=== PATIENT | female | born 1935 | race Caucasian/White ===

== ENCOUNTER → 2018-06-29 09:34 | Outpatient (REF) | payer MEDICARE, OTHER, SELFPAY ==
[2018-06-29 09:55] LABS: INR 2.1 (0.9-1.3); Prothrombin Time 24.9 SECONDS (10.1-12.7)
== END ==
LOC: LAB 09:34
PROVIDERS: Family Provider Physician Assistant Medical; Visit Provider Nurse Practitioner Family
DX: I48.91 Unspecified atrial fibrillation (principal)
CPT/HCPCS: 36415; 85610

== ENCOUNTER 2018-09-16 16:01 | Inpatient (IN) | payer MEDICARE, OTHER, SELFPAY ==
--- NOTE | 2018-09-16 16:06 | DI.RAD.S_ITS ---
PROCEDURE: XR HIP W PEL IF DONE LT 2V INDICATIONS: fall, hematoma lt forehead TECHNIQUE: AP pelvis with lateral view(s) of the left hip(s). COMPARISON: [facility], CR, XR KNEE LT 1TO2V, 09/16/2018, 16:22. [facility], CR, XR HAND RT 2V, 09/16/2018, 16:22. [facility], CR, XR HAND LT 2V, 09/16/2018, 16:22. [facility], CR, XR WRIST LT 2V, 09/16/2018, 16:22. [facility], CT, CT HEAD/BRAIN WO CON, 09/16/2018, 16:09. [facility], CR, PELVIS 1 OR 2 VIEWS, 09/06/2011, 12:29. FINDINGS: Bones: There is a potential nondisplaced fracture of the left superior pubic ramus. No additional focal bony abnormalities are seen. Left hip arthroplasty hardware is seen. No findings of hardware failure or hardware loosening are seen. There is moderate to severe superior joint space narrowing seen of right, with associated remodeling changes with subchondral sclerosis and osteophyte formation. Soft tissues: The visualized bowel gas pattern is normal. No suspicious soft tissue calcifications. Advanced arterial calcifications are seen. There is a left common iliac artery stent seen. IMPRESSION: Potential nondisplaced left superior pubic ramus fracture. Please correlate with focal tenderness. 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 Unremarkable left arthroplasty hardware. Dictated by: Norberto Monahan M.D. on 09/16/2018 at 16:26 Approved by: Norberto Monahan M.D. on 09/16/2018 at 16:28
--- NOTE | 2018-09-16 16:06 | DI.CT.S_ITS ---
PROCEDURE: CT HEAD/BRAIN WO CON INDICATIONS: fall, hematoma lt forehead TECHNIQUE: Noncontrast 4.5 mm thick angled axial sections acquired from the foramen magnum to the vertex, with coronal and sagittal reformats. For radiation dose reduction, the following was used: automated exposure control, adjustment of mA and/or kV according to patient size. COMPARISON: None. FINDINGS: Image quality: Excellent. CSF spaces: Basal cisterns are patent. No extra-axial fluid collections. The ventricles are symmetric in size and shape. Brain: There is an 8mm focus of intraparenchymal hemorrhage is seen involving the right parietal lobe, as on series 4 image 62 and on the image 17. Focal low-density is seen involving the inferior right occipital lobe. There is cerebral volume loss for age, with resultant ventricular and sulcal prominence. There are periventricular and deep white matter chronic small vessel ischemic changes. There is intracranial internal carotid artery atherosclerosis. Skull and face: There is a left forehead/temporal hematoma seen. No underlying calvarial fracture is seen. Calvarium and visualized facial bones appear intact, without suspicious lesions. Sinuses: Visualized sinuses and mastoids are clear. IMPRESSION: An 8mm focus of intraparenchymal hemorrhage can be seen involving the right parietal lobe. Focal low density is seen involving the right inferior occipital lobe, which has the appearance of a remote infarction. Differential diagnosis includes an underlying mass with edema, yet this is considered to be less likely. When clinically appropriate, please consider a dedicated MRI with contrast for further evaluation (assuming that there is no contraindication). There is a left forehead/left temporal scalp hematoma, without an underlying calvarial fracture seen. Dictated by: Norberto Monahan M.D. on 09/16/2018 at 15:43 Approved by: Norberto Monahan M.D. on 09/16/2018 at 15:47
[2018-09-16 16:09] VITALS: BP 141/79; PULSE 65; RESP 22; TEMP 36.1; O2SAT 98
--- NOTE | 2018-09-16 16:13 | DI.RAD.S_ITS ---
PROCEDURE: XR WRIST LT 2V INDICATIONS: glf TECHNIQUE: 2 Views of the wrist were acquired. COMPARISON: [facility], CR, XR KNEE LT 1TO2V, 09/16/2018, 16:22. [facility], CR, XR HAND RT 2V, 09/16/2018, 16:22. [facility], CR, XR HIP W PEL IF DONE LT 2V, 09/16/2018, 16:22. [facility], CR, XR HAND LT 2V, 09/16/2018, 16:22. [facility], CT, CT HEAD/BRAIN WO CON, 09/16/2018, 16:09. FINDINGS: Bones: There is an intra-articular fracture seen involving the distal radius, including involving the radial styloid. There is an associated mildly displaced ulnar styloid fracture also seen. No carpal bone fracture is seen. There is advanced degenerative change seen of the radial aspect of the carpus. Soft tissues: Associated soft tissue swelling is seen. IMPRESSION: Intra-articular, comminuted distal radius fracture. Mildly displaced ulnar styloid fracture. Advanced degenerative change of the radial aspect of the carpus. Dictated by: Norberto Monahan M.D. on 09/16/2018 at 16:23 Approved by: Norberto Monahan M.D. on 09/16/2018 at 16:24
--- NOTE | 2018-09-16 16:13 | DI.RAD.S_ITS ---
PROCEDURE: XR HAND LT 2V INDICATIONS: glf TECHNIQUE: 2 views of the hand(s) acquired. COMPARISON: [facility], CR, XR KNEE LT 1TO2V, 09/16/2018, 16:22. [facility], CR, XR HAND RT 2V, 09/16/2018, 16:22. [facility], CR, XR HIP W PEL IF DONE LT 2V, 09/16/2018, 16:22. [facility], CR, XR WRIST LT 2V, 09/16/2018, 16:22. [facility], CT, CT HEAD/BRAIN WO CON, 09/16/2018, 16:09. FINDINGS: Bones: There is a comminuted, intra-articular fracture distal radius seen. There is a mildly displaced ulnar styloid fracture seen. No definite carpal bone fracture is seen. There is advanced degenerative change of the radial aspect of the carpus. Soft tissues: Soft tissue swelling is seen. Calcification can be seen involving the region of the triangular fibrocartilage. Distal arterial calcification is seen. IMPRESSION: There is an intra-articular, comminuted distal radius fracture. A mildly displaced ulnar styloid fracture is seen. Dictated by: Norberto Monahan M.D. on 09/16/2018 at 16:24 Approved by: Norberto Monahan M.D. on 09/16/2018 at 16:26
--- NOTE | 2018-09-16 16:13 | DI.RAD.S_ITS ---
PROCEDURE: XR HAND RT 2V INDICATIONS: glf TECHNIQUE: 2 views of the hand(s) acquired. COMPARISON: [facility], CR, XR KNEE LT 1TO2V, 09/16/2018, 16:22. [facility], CR, XR HIP W PEL IF DONE LT 2V, 09/16/2018, 16:22. [facility], CR, XR HAND LT 2V, 09/16/2018, 16:22. [facility], CR, XR WRIST LT 2V, 09/16/2018, 16:22. [facility], CT, CT HEAD/BRAIN WO CON, 09/16/2018, 16:09. FINDINGS: Bones: No acute fractures are seen. However, the patient's degenerative change with osteophyte formation limits evaluation for a subtle fracture. 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 Age-appropriate osteopenia is seen. Soft tissues: Soft tissue calcification can be seen, including involving the triangular fibrocartilage. Distal arterial calcification can be seen. IMPRESSION: No tiffanie acute fracture can be seen. Osteopenia and prominent degenerative changes. Dictated by: Norberto Monahan M.D. on 09/16/2018 at 16:29 Approved by: Norberto Monahan M.D. on 09/16/2018 at 16:30
--- NOTE | 2018-09-16 16:13 | DI.RAD.S_ITS ---
PROCEDURE: XR KNEE LT 1TO2V INDICATIONS: pain sp glf TECHNIQUE: 2 views of the knee were acquired. COMPARISON: [facility], CR, XR HIP W PEL IF DONE LT 2V, 09/16/2018, 16:22. [facility], CR, XR HAND LT 2V, 09/16/2018, 16:22. [facility], CR, XR WRIST LT 2V, 09/16/2018, 16:22. [facility], CT, CT HEAD/BRAIN WO CON, 09/16/2018, 16:09. [facility], CR, XR HAND RT 2V, 09/16/2018, 16:22. [facility], CR, KNEE 1-2 VIEWS LEFT, 12/18/2007, 13:15. FINDINGS: Bones: No fractures or dislocations. No suspicious bony lesions. Left knee arthroplasty hardware is seen. No findings of hardware failure or hardware loosening are seen. Soft tissues: No joint effusion. No suspicious soft tissue calcifications. Atherosclerotic calcification is noted. IMPRESSION: Unremarkable left knee arthroplasty hardware. If there is point tenderness (or other clinical suspicion for a fracture not seen on these images) then a dedicated CT could be considered for further evaluation, as clinically appropriate. Dictated by: Norberto Monahan M.D. on 09/16/2018 at 16:30 Approved by: Norberto Monahan M.D. on 09/16/2018 at 16:31
--- NOTE | 2018-09-16 17:05 | DI.CT.S_ITS ---
PROCEDURE: CT CERVICAL SPINE WO CON INDICATIONS: s/p witnessed fall, hematoma to forehead TECHNIQUE: Noncontrast 3 mm thick sections acquired from the skull base to the T4 level. Sagittal and coronal reformats were then constructed. For radiation dose reduction, the following was used: automated exposure control, adjustment of mA and/or kV according to patient size. COMPARISON: [facility], CR, XR WRIST LT 2V, 09/16/2018, 16:22. [facility], CR, XR HAND RT 2V, 09/16/2018, 16:22. [facility], CR, XR HIP W PEL IF DONE LT 2V, 09/16/2018, 16:22. [facility], CR, XR HAND LT 2V, 09/16/2018, 16:22. [facility], CR, XR KNEE LT 1TO2V, 09/16/2018, 16:22. [facility], CT, CT HEAD/BRAIN WO CON, 09/16/2018, 16:09. FINDINGS: Image quality: Excellent. Bones: No fractures or dislocations. Visualized superior ribs are intact. Advanced cervical spine degenerative changes are seen, with multiple levels of bony fusion. There is moderate to severe disc space narrowing at the C4-C5 and the C6-C7 levels. Bridging anterior osteophytes are seen from C3-C7. Calcified pannus can be seen posterior to the dens. Posteriorly directed osteophytes are seen at several levels, worst at C5-C6 and C6-C7. Age-appropriate osteopenia is seen. Soft tissues: Prevertebral soft tissues are normal in thickness. No paravertebral hematomas. There is a small left-sided pleural effusion. There is also partial visualization of apparent fluid along the right oblique fissure. No apical pneumothoraces. Prominent atherosclerotic calcification is noted. IMPRESSION: No acute fractures are detected. Advanced cervical spine degenerative changes are seen. Small left-sided pleural effusion. Dictated by: Norberto Monahan M.D. on 09/16/2018 at 16:44 Approved by: Norberto Monahan M.D. on 09/16/2018 at 16:47
[2018-09-16 17:20] VITALS: BP 151/84; PULSE 67; RESP 20; O2SAT 100
[2018-09-16] MEDS: SODIUM CHLORIDE 0.9% 1,000 ML 150 ML IV (17:20)
[2018-09-16 17:31] LABS: Add Manual Diff / Slide Review NO; Basophils Absolute Auto 0 /uL (0-100); Basophils Percent Auto 0.6 % (0-2); Eosinophils Absolute Auto 200 /uL (0-450); Eosinophils Percent Auto 3.5 % (2-4); Hematocrit 36.1 % (36-46); Hemoglobin 12.1 g/dL (12.0-16.0); Lymphocytes Absolute Auto 400 /uL (1100-4500); Lymphocytes Percent Auto 8.6 % (25-40); Mean Corpuscular HGB Conc 33.6 % (30-36); Mean Corpuscular Hemoglobin 32.7 PG (26-34); Mean Corpuscular Volume 97.4 fL (80-100); Monocytes Absolute Auto 700 /uL (0-900); Monocytes Percent Auto 13.7 % (3-14); Neutrophils Absolute Auto 3600 /uL (1500-7000); Neutrophils Percent Auto 73.6 % (50-75); Platelet Count 118 X10^3/uL (150-400); Red Blood Cell Count 3.71 X10^6/uL (4.0-5.2); Red Cell Distribution Width 15.7 % (11.6-14.8); White Blood Cell Count 4.9 X10^3/uL (4.5-11.0)
[2018-09-16 17:37] LABS: Prothrombin Time 11.8 SECONDS (10.1-12.7)
[2018-09-16 17:39] LABS: PTT Partial Thromboplastin Tim 26 SECONDS (26.4-36.2)
[2018-09-16 17:40] LABS: Alanine Aminotransferase 36 IU/L (9-52); Albumin 3.7 g/dL (3.5-5.0); Albumin Globulin Ratio 1.2 (1.0-2.8); Alkaline Phosphatase 118 U/L (38-126); Aspartate Aminotransferase 39 IU/L (14-36); BUN Creatinine Ratio 23.6 (6-22); Blood Urea Nitrogen 33 mg/dL (7-17); Carbon Dioxide 34 mmol/L (22-32); Chloride 99 mmol/L (98-107); Estimated Glomerular Filt Rate 36.1 mL/min (>60); Globulin 3.1 g/dL (1.7-4.1); Glucose 125 mg/dL (80-110); HEMOLYSIS < 15 (0-50); Potassium 4.2 mmol/L (3.4-5.1); Sodium 140 mmol/L (137-145); Total Protein 6.8 g/dL (6.3-8.2)
--- NOTE | 2018-09-16 17:55 | ED.FALL ---
HPI - Fall <Radha Pearson PUBLIC HEALTH TRAINING ASSISTANT-BC - Last Filed: 09/16/18 21:18> General Chief Complaint: Fall Stated Complaint: GLF Time Seen by Provider: 09/16/18 16:12 Source: patient and EMS Mode of arrival: EMS Limitations: altered mental status History of Present Illness HPI Narrative: The patient is an 82-year-old female with history of Alzheimer's, COPD, CKD, anemia, hypertension AFib and stroke who presents after a ground level fall. This was a witnessed trip and fall. She lives at [facility] here in [place]. She presents complaining of a bump on her head, left-sided hip pain, left-sided wrist and hand pain. She also complains of right hand pain. The patient does have a history of dementia, making interview very difficult. She denies any neck back or abdominal pain. She presents by EMS with no backboard and no collar. Related Data Home Medications Medication Instructions Recorded Confirmed Coenzyme Q10 (#COQ10) 100 mg PO QDAY #0 08/24/11 Multivitamin, Minerals, and 1 tab PO QDAY #0 08/24/11 (#CENTRUM SILVER) albuterol sulfate [Proventil HFA] 2 puff INH QIDPRN #8.5 gm 08/24/11 allopurinol 100 mg PO QDAY #0 08/24/11 amlodipine [Norvasc] 5 mg PO QDAY #0 08/24/11 cholecalciferol (vitamin D3) 1,000 iu PO QDAY #0 08/24/11 [Vitamin D3] hydrochlorothiazide 25 mg PO QDAY #0 08/24/11 lisinopril 30 mg PO BID #0 08/24/11 metoprolol tartrate 100 mg PO BID #0 08/24/11 montelukast [Singulair] 10 mg PO QDAY #0 08/24/11 pravastatin 80 mg PO HS #0 08/24/11 beclomethasone dipropionate [Qvar] 1 puff INH BID #0 02/16/12 naproxen sodium [Aleve] 220 mg PO PRN #0 02/16/12 prednisone OPHTH QDAY #0 02/16/12 Allergies Allergy/AdvReac Type Severity Reaction Status Date / Time From TYLENOL Allergy Unknown Uncoded 06/14/17 12:09 Review of Systems <LISA CuevasP-BC - Last Filed: 09/16/18 21:18> Review of Systems ROS Unobtainable: Unobtainable due to medical condition Exam <RHIANNA Cuevas-BC - Last Filed: 09/16/18 21:18> Narrative Exam Narrative: GENERAL: This is a well-nourished, well-developed patient, stating she wants to go home as she is fine HEAD: Noted left scalp hematoma. No pain to palpation scalp. EYES: Pupils equal round and reactive. Extraocular motions intact. No scleral icterus. No injection or drainage. ENT: Nose without bleeding, purulent drainage or septal hematoma. Throat without erythema, tonsillar hypertrophy or exudate. Uvula midline. Airway patent. NECK: Trachea midline. No JVD or lymphadenopathy. Supple, nontender, no meningeal signs. CARDIOVASCULAR: Regular rate and irregular rhythm. RESPIRATORY: Decreased bilaterally to auscultation. Breath sounds equal bilaterally. No wheezes, rales, or rhonchi. GASTROINTESTINAL: Abdomen soft, non-tender, nondistended. No hepato-splenomegaly, or palpable masses. No guarding. Active bowel sounds. EXTREMITIES: +1 edema noted. Using all extremities. Capillary refill intact. Patient is able to do thumbs up and thumbs down, avionics electrical engineer hands bilaterally. Pain to palpation bilateral hands as well as left wrist. Pain to palpation right knee. Able to lift both legs off the stretcher. Pelvis is stable to rock and palpation. Pain to palpation of left hip. BACK: Nontender without deformity or crepitance. No flank tenderness. NEURO: Alert. Oriented to place. Pleasantly confused. SKIN: Ecchymosis noted over left wrist. Skin tear 1 cm noted on left thumb. Ecchymosis noted left forehead. No periorbital ecchymosis. No Bar signs. Initial Vital Signs Initial Vital Signs: Vital Signs Temperature 96.9 F L 09/16/18 16:09 Pulse Rate 65 09/16/18 16:09 Respiratory Rate 22 09/16/18 16:09 Blood Pressure 141/79 H 09/16/18 16:09 Pulse Oximetry 98 09/16/18 16:09 <Lana Valles DO - Last Filed: 09/17/18 02:30> Initial Vital Signs Initial Vital Signs: Vital Signs Temperature 96.9 F L 09/16/18 16:09 Pulse Rate 65 09/16/18 16:09 Respiratory Rate 22 09/16/18 16:09 Blood Pressure 141/79 H 09/16/18 16:09 Pulse Oximetry 98 09/16/18 16:09 PFSH <Radha RHIANNA Pearson-BC - Last Filed: 09/16/18 21:18> Medical History AD (Alzheimer's disease) (Acute) Atrial fibrillation (Acute) COPD (chronic obstructive pulmonary disease) (Acute) Hypertension (Acute) Social History (Updated 09/16/18 @ 20:34 by Félix Martinez MD) additional social history: Lives in an assisted living facility Social History (Updated 09/16/18 @ 20:34 by Félix Martinez MD) additional social history: Lives in an assisted living facility Procedures <RHIANNA Cuevas-WATSON - Last Filed: 09/16/18 21:18> Orthopedic Splinting/Casting Injury #1: Side: left Upper Extremity Injury Location: wrist Upper Extremity Immobilizer: wrist splint Post splinting neuro exam: intact Post splinting vascular exam: intact Placed by: Nursing Additional Comments: Black Velcro brace placed as per Dr. Mtz from [facility]. Patient later removed brace and threw it across the room per nursing. Course <RHIANNA Cuevas-BC - Last Filed: 09/16/18 21:18> Course Narrative: Presented with a ground level fall. At approximately 4:00 p.m., I reviewed the patient's head CT results by EHR. It is noted that the patient has an intraparenchymal hemorrhage. Thus a modified trauma was called on the patient. The patient was placed in a C-collar. I spoke with the patient's DPOAPearl regarding the patient. She does not want the patient to be transferred to any other facility at this point time. She discusses that comfort care is the goal, which is reflected on the patient's POLST. A copy of the patient's POLST was obtained, illustrated DNAR with TOP KNITTER. However given the patient's brain bleed, I spoke with [facility] neuro surgery to see if they had any recommendations. They stated since the patient is TOP KNITTER they would not recommend transfer or any major intervention at this time. If desired another head CT could be reobtained in 4 hours. Given the patient's status, I contacted Dr. Mark for admission at 6:30 p.m.. He kindly agreed to accept the patient for inpatient status. I discussed that I would contact Trauma and Orthopedics given the patient's injury prior to transfer. After I spoke with surgery and Ortho, I also contacted the patient's DPOA to discuss the plan. Pearl was happy with the fact that the patient would be staying at this facility. Copies of the patient's POLST and power of tax associate attorney. paperwork are in her chart at this point time. Orders Ordered: ED Orders 09/16/18 18:34 XR chest 1V Stat 09/16/18 20:09 Consult to Physician Stat 09/16/18 20:11 Consult to Physician Stat 09/16/18 22:13 Consult to Discharge Planning Routine 09/16/18 23:58 UA Complete [Urinalysis and Microscopic] Urgent 09/17/18 02:17 Consult to Hospice Referral Routine Consult to Bottle Dealer Routine Acetaminophen (Tylenol) 650 mg PO Q6HR PRN PRN Reason: As Needed for Fever/Mild Pain Sodium Chloride (Normal Saline 0.9%) 1,000 mls @ 150 mls/hr IV CONT MUKUND Last Infusion: 09/16/18 21:27 Dose: 150 mls/hr Admin: 09/16/18 17:20 Dose: 150 mls/hr Morphine Sulfate (Morphine) 2 mg IV Q4HR PRN PRN Reason: Pain, Moderate (4-6) Discontinued Medications Acetaminophen (Tylenol) 325 mg PO Q6HR PRN PRN Reason: As Needed for Fever/Mild Pain Last Admin: 09/16/18 18:59 Dose: 325 mg Consultations Consultation #1: I spoke with Dr. Martinez regarding the patient for a trauma consultation. He came in to evaluate the patient. Time: 16:30 Consultation #2: I spoke with Dr. Mtz regarding the patient's orthopedic injuries. He states that the patient's wrist fracture is old and recommends a Velcro wrist brace. One was placed by nursing staff. Time: 17:00 Vital Signs - 8 hr 09/16/18 20:20 09/16/18 20:24 09/16/18 21:50 Temperature 96.5 F L Pulse Rate 85 77 88 Respiratory Rate 16 17 18 Blood Pressure 153/92 H Blood Pressure [Left Arm] 144/112 H 152/79 H Pulse Oximetry 100 100 09/17/18 00:35 09/17/18 00:40 Temperature 97.4 F L Pulse Rate 100 H Respiratory Rate 20 Blood Pressure 150/70 H Blood Pressure [Left Arm] Pulse Oximetry 97 97 <Lana Valles DO - Last Filed: 09/17/18 02:30> Orders Ordered: ED Orders 09/16/18 18:34 XR chest 1V Stat 09/16/18 20:09 Consult to Physician Stat 09/16/18 20:11 Consult to Physician Stat 09/16/18 22:13 Consult to Discharge Planning Routine 09/16/18 23:58 UA Complete [Urinalysis and Microscopic] Urgent 09/17/18 02:17 Consult to Hospice Referral Routine Consult to Bottle Dealer Routine Acetaminophen (Tylenol) 650 mg PO Q6HR PRN PRN Reason: As Needed for Fever/Mild Pain Sodium Chloride (Normal Saline 0.9%) 1,000 mls @ 150 mls/hr IV CONT MUKUND Last Infusion: 09/16/18 21:27 Dose: 150 mls/hr Admin: 09/16/18 17:20 Dose: 150 mls/hr Morphine Sulfate (Morphine) 2 mg IV Q4HR PRN PRN Reason: Pain, Moderate (4-6) Discontinued Medications Acetaminophen (Tylenol) 325 mg PO Q6HR PRN PRN Reason: As Needed for Fever/Mild Pain Last Admin: 09/16/18 18:59 Dose: 325 mg Vital Signs - 8 hr 09/16/18 20:20 09/16/18 20:24 09/16/18 21:50 Temperature 96.5 F L Pulse Rate 85 77 88 Respiratory Rate 16 17 18 Blood Pressure 153/92 H Blood Pressure [Left Arm] 144/112 H 152/79 H Pulse Oximetry 100 100 09/17/18 00:35 09/17/18 00:40 Temperature 97.4 F L Pulse Rate 100 H Respiratory Rate 20 Blood Pressure 150/70 H Blood Pressure [Left Arm] Pulse Oximetry 97 97 MDM - Fall <SHIRLENE Cuevas - Last Filed: 09/16/18 21:18> Lab Data Result diagrams: 09/16/18 17:21 09/16/18 17:21 Lab Results 09/16/18 09/16/18 09/16/18 Range/Units 17:21 17:21 17:21 WBC 4.9 (4.5-11.0) X10^3/uL RBC 3.71 L (4.0-5.2) X10^6/uL Hgb 12.1 (12.0-16.0) g/dL Hct 36.1 (36-46) % MCV 97.4 (80-100) fL MCH 32.7 (26-34) PG MCHC 33.6 (30-36) % RDW 15.7 H (11.6-14.8) % Plt Count 118 L (150-400) X10^3/uL Neut % (Auto) 73.6 (50-75) % Lymph % (Auto) 8.6 L (25-40) % Grand % (Auto) 13.7 (3-14) % Eos % (Auto) 3.5 (2-4) % Baso % (Auto) 0.6 (0-2) % Neut # (Auto) 3600 (3973-3897) /uL Lymph # (Auto) 400 L (9326-4361) /uL Grand # (Auto) 700 (0-900) /uL Eos # (Auto) 200 (0-450) /uL Baso # (Auto) 0 (0-100) /uL PT 11.8 (10.1-12.7) SECONDS INR 1.0 (0.9-1.3) APTT 26 L (26.4-36.2) SECONDS Sodium 140 (137-145) mmol/L Potassium 4.2 (3.4-5.1) mmol/L Chloride 99 (98-107) mmol/L Carbon Dioxide 34 H (22-32) mmol/L BUN 33 H (7-17) mg/dL Creatinine 1.40 H (0.52-1.04) mg/dL Estimated GFR 36.1 L (>60) mL/min BUN/Creatinine Ratio 23.6 H (6-22) Glucose 125 H (80-110) mg/dL Calcium 9.0 (8.4-10.2) mg/dL Total Bilirubin 1.0 (0.2-1.3) mg/dL AST 39 H (14-36) IU/L ALT 36 (9-52) IU/L Alkaline Phosphatase 118 (38-126) U/L Total Protein 6.8 (6.3-8.2) g/dL Albumin 3.7 (3.5-5.0) g/dL Globulin 3.1 (1.7-4.1) g/dL Albumin/Globulin Ratio 1.2 (1.0-2.8) Blood Type Antibody Screen 09/16/18 Range/Units 17:21 WBC (4.5-11.0) X10^3/uL RBC (4.0-5.2) X10^6/uL Hgb (12.0-16.0) g/dL Hct (36-46) % MCV (80-100) fL MCH (26-34) PG MCHC (30-36) % RDW (11.6-14.8) % Plt Count (150-400) X10^3/uL Neut % (Auto) (50-75) % Lymph % (Auto) (25-40) % Grand % (Auto) (3-14) % Eos % (Auto) (2-4) % Baso % (Auto) (0-2) % Neut # (Auto) (8888-5713) /uL Lymph # (Auto) (3742-9569) /uL Grand # (Auto) (0-900) /uL Eos # (Auto) (0-450) /uL Baso # (Auto) (0-100) /uL PT (10.1-12.7) SECONDS INR (0.9-1.3) APTT (26.4-36.2) SECONDS Sodium (137-145) mmol/L Potassium (3.4-5.1) mmol/L Chloride (98-107) mmol/L Carbon Dioxide (22-32) mmol/L BUN (7-17) mg/dL Creatinine (0.52-1.04) mg/dL Estimated GFR (>60) mL/min BUN/Creatinine Ratio (6-22) Glucose (80-110) mg/dL Calcium (8.4-10.2) mg/dL Total Bilirubin (0.2-1.3) mg/dL AST (14-36) IU/L ALT (9-52) IU/L Alkaline Phosphatase (38-126) U/L Total Protein (6.3-8.2) g/dL Albumin (3.5-5.0) g/dL Globulin (1.7-4.1) g/dL Albumin/Globulin Ratio (1.0-2.8) Blood Type O Positive Antibody Screen Negative Imaging Data Chest x-ray: Radiologist's impression: [address] [address] XRay Report Signed Patient: Cyndi Troncoso R#: [id number] : 1935cct:[id number] Age/Sex: 82 / FDate of Service: 09/16/18 Loc: ED Accession Number: [id number] Procedure: XR chest 1V Ordering Provider: Radha Pearson PROCEDURE: XR CHEST 1V INDICATIONS: fall TECHNIQUE: One view of the chest was acquired. COMPARISON: None. FINDINGS: Surgical changes and devices: None. Lungs and pleura: Small pleural effusions. Increased pulmonary vascularity suggesting mild pulmonary edema. Left basilar opacity may be consolidation or atelectasis. No pneumothorax. Mediastinum: Mediastinal contours appear normal. Heart size is [id number] increased. Bones and chest wall: No suspicious bony lesions. Overlying soft tissues appear unremarkable. IMPRESSION: 1. Moderate to severe cardiomegaly and increased pulmonary vascularity suggesting mild pulmonary edema. 2. Small pleural effusions bilaterally. 3. Left basilar pneumonia or atelectasis. Dictated by: Vicki Beasley M.D. on 09/16/2018 at 19:11 Approved by: Vicki Beasley M.D. on 09/16/2018 at 19:13 CT C spine: Radiologist's impression: [address] [address] [address] Scan Report Signed Patient: Cyndi Troncoso FMR#: [id number] : 1935cct:[id number] Age/Sex: 82 / FDate of Service: 09/16/18 Loc: ED Accession Number: [id number] Procedure: CT cervical spine wo con Ordering Provider: Radha Pearson PROCEDURE: CT CERVICAL SPINE WO CON INDICATIONS: s/p witnessed fall, hematoma to forehead TECHNIQUE: Noncontrast 3 mm thick sections acquired from the skull base to the T4 level. Sagittal and coronal reformats were then constructed. For radiation dose reduction, the following was used: automated exposure control, adjustment of mA and/or kV according to patient size. COMPARISON: [facility], CR, XR WRIST LT 2V, 09/16/2018, 16:22. [facility], CR, XR HAND RT 2V, 09/16/2018, 16:22. [facility], CR, XR HIP W PEL IF DONE LT 2V, 09/16/2018, 16:22. [facility], CR, XR HAND LT 2V, 09/16/2018, 16:22. [facility], CR, XR KNEE LT 1TO2V, 09/16/2018, 16:22. [facility], CT, CT HEAD/BRAIN WO CON, 09/16/2018, 16:09. FINDINGS: Image quality: Excellent. Bones: No fractures or dislocations. Visualized superior ribs are intact. Advanced cervical spine degenerative changes are seen, with multiple levels of bony fusion. There is moderate to severe disc space narrowing at the C4-C5 and the C6-C7 levels. Bridging anterior osteophytes are seen from C3-C7. Calcified pannus can be seen posterior to the dens. Posteriorly directed osteophytes are seen at several levels, worst at C5-C6 and C6-C7. Age-appropriate osteopenia is seen. Soft tissues: Prevertebral soft tissues are normal in thickness. No paravertebral hematomas. There is a small left-sided pleural effusion. There is also partial visualization of apparent fluid along the right oblique fissure. No apical pneumothoraces. Prominent atherosclerotic calcification is noted. IMPRESSION: No acute fractures are detected. Advanced cervical spine degenerative changes are seen. Small left-sided pleural effusion. Dictated by: Norberto Monahan M.D. on 09/16/2018 at 16:44 Approved by: Norberto Monahan M.D. on 09/16/2018 at 16:47 right hand xray : Radiologist's impression: [address] [address] [address] Scan Report Signed Patient: Cyndi Troncoso FMR#: [id number] : [id number]:[id number] Age/Sex: 82 / FDate of Service: 09/16/18 Loc: ED Accession Number: [id number] Procedure: CT cervical spine wo con Ordering Provider: Radha Pearson PROCEDURE: CT CERVICAL SPINE WO CON INDICATIONS: s/p witnessed fall, hematoma to forehead TECHNIQUE: Noncontrast 3 mm thick sections acquired from the skull base to the T4 level. Sagittal and coronal reformats were then constructed. For radiation dose reduction, the following was used: automated exposure control, adjustment of mA and/or kV according to patient size. COMPARISON: [facility], CR, XR WRIST LT 2V, 09/16/2018, 16:22. [facility], CR, XR HAND RT 2V, 09/16/2018, 16:22. [facility], CR, XR HIP W PEL IF DONE LT 2V, 09/16/2018, 16:22. [facility], CR, XR HAND LT 2V, 09/16/2018, 16:22. [facility], CR, XR KNEE LT 1TO2V, 09/16/2018, 16:22. [facility], CT, CT HEAD/BRAIN WO CON, 09/16/2018, 16:09. FINDINGS: Image quality: Excellent. Bones: No fractures or dislocations. Visualized superior ribs are intact. Advanced cervical spine degenerative changes are seen, with multiple levels of bony fusion. There is moderate to severe disc space narrowing at the C4-C5 and the C6-C7 levels. Bridging anterior osteophytes are seen from C3-C7. Calcified pannus can be seen posterior to the dens. Posteriorly directed osteophytes are seen at several levels, worst at C5-C6 and C6-C7. Age-appropriate osteopenia is seen. Soft tissues: Prevertebral soft tissues are normal in thickness. No paravertebral hematomas. There is a small left-sided pleural effusion. There is also partial visualization of apparent fluid along the right oblique fissure. No apical pneumothoraces. Prominent atherosclerotic calcification is noted. IMPRESSION: No acute fractures are detected. Advanced cervical spine degenerative changes are seen. Small left-sided pleural effusion. Dictated by: Norberto Monahan M.D. on 09/16/2018 at 16:44 Approved by: Norberto Monahan M.D. on 09/16/2018 at 16:47 left hand xray : Radiologist's impression: [address] [address] [address] Scan Report Signed Patient: Cyndi Troncoso FMR#: [id number] : 7Acct:[id number] Age/Sex: 82 / FDate of Service: 09/16/18 Loc: ED Accession Number: [id number] Procedure: CT cervical spine wo con Ordering Provider: Radha Pearson PUBLIC HEALTH TRAINING ASSISTANT-BC PROCEDURE: CT CERVICAL SPINE WO CON INDICATIONS: s/p witnessed fall, hematoma to forehead TECHNIQUE: Noncontrast 3 mm thick sections acquired from the skull base to the T4 level. Sagittal and coronal reformats were then constructed. For radiation dose reduction, the following was used: automated exposure control, adjustment of mA and/or kV according to patient size. COMPARISON: [facility], CR, XR WRIST LT 2V, 09/16/2018, 16:22. [facility], CR, XR HAND RT 2V, 09/16/2018, 16:22. [facility], CR, XR HIP W PEL IF DONE LT 2V, 09/16/2018, 16:22. [facility], CR, XR HAND LT 2V, 09/16/2018, 16:22. [facility], CR, XR KNEE LT 1TO2V, 09/16/2018, 16:22. [facility], CT, CT HEAD/BRAIN WO CON, 09/16/2018, 16:09. FINDINGS: Image quality: Excellent. Bones: No fractures or dislocations. Visualized superior ribs are intact. Advanced cervical spine degenerative changes are seen, with multiple levels of bony fusion. There is moderate to severe disc space narrowing at the C4-C5 and the C6-C7 levels. Bridging anterior osteophytes are seen from C3-C7. Calcified pannus can be seen posterior to the dens. Posteriorly directed osteophytes are seen at several levels, worst at C5-C6 and C6-C7. Age-appropriate osteopenia is seen. Soft tissues: Prevertebral soft tissues are normal in thickness. No paravertebral hematomas. There is a small left-sided pleural effusion. There is also partial visualization of apparent fluid along the right oblique fissure. No apical pneumothoraces. Prominent atherosclerotic calcification is noted. IMPRESSION: No acute fractures are detected. Advanced cervical spine degenerative changes are seen. Small left-sided pleural effusion. Dictated by: Norberto Monahan M.D. on 09/16/2018 at 16:44 Approved by: Norberto Monahan M.D. on 09/16/2018 at 16:47 knee xray : Radiologist's impression: Cyndi Troncoso 82 F [address] [address] XRay Report Signed Patient: Cyndi Troncoso FMR#: [id number] : 1935cct:[id number] Age/Sex: 82 / FDate of Service: 09/16/18 Loc: ED Accession Number: [id number] Procedure: XR knee LT 1to2V Ordering Provider: Radha Pearson PUBLIC HEALTH TRAINING ASSISTANT-BC PROCEDURE: XR KNEE LT 1TO2V INDICATIONS: pain sp glf TECHNIQUE: 2 views of the knee were acquired. COMPARISON: [facility], CR, XR HIP W PEL IF DONE LT 2V, 09/16/2018, 16:22. [facility], CR, XR HAND LT 2V, 09/16/2018, 16:22. [facility], CR, XR WRIST LT 2V, 09/16/2018, 16:22. [facility], CT, CT HEAD/BRAIN WO CON, 09/16/2018, 16:09. [facility], CR, XR HAND RT 2V, 09/16/2018, 16:22. [facility], CR, KNEE 1-2 VIEWS LEFT, 12/18/2007, 13:15. FINDINGS: Bones: No fractures or dislocations. No suspicious bony lesions. Left knee arthroplasty hardware is seen. No findings of hardware failure or hardware loosening are seen. Soft tissues: No joint effusion. No suspicious soft tissue calcifications. Atherosclerotic calcification is noted. IMPRESSION: Unremarkable left knee arthroplasty hardware. If there is point tenderness (or other clinical suspicion for a fracture not seen on these images) then a dedicated CT could be considered for further evaluation, as clinically appropriate. Dictated by: Norberto Monahan M.D. on 09/16/2018 at 16:30 Approved by: Norberto Monahan M.D. on 09/16/2018 at 16:31 left wrist xray : Radiologist's impression: Cyndi Troncoso 82 F [address] [address] XRay Report Signed Patient: Cyndi Troncoso FMR#: [id number] : 1935cct:[id number] Age/Sex: 82 / FDate of Service: 09/16/18 Loc: ED Accession Number: [id number] Procedure: XR wrist LT 2V Ordering Provider: Radha Pearson-BC PROCEDURE: XR WRIST LT 2V INDICATIONS: glf TECHNIQUE: 2 Views of the wrist were acquired. COMPARISON: [facility], CR, XR KNEE LT 1TO2V, 09/16/2018, 16:22. [facility], CR, XR HAND RT 2V, 09/16/2018, 16:22. [facility], CR, XR HIP W PEL IF DONE LT 2V, 09/16/2018, 16:22. [facility], CR, XR HAND LT 2V, 09/16/2018, 16:22. [facility], CT, CT HEAD/BRAIN WO CON, 09/16/2018, 16:09. FINDINGS: Bones: There is an intra-articular fracture seen involving the distal radius, including involving the radial styloid. There is an associated mildly displaced ulnar styloid fracture also seen. No carpal bone fracture is seen. There is advanced degenerative change seen of the radial aspect of the carpus. Soft tissues: Associated soft tissue swelling is seen. IMPRESSION: Intra-articular, comminuted distal radius fracture. Mildly displaced ulnar styloid fracture. Advanced degenerative change of the radial aspect of the carpus. Dictated by: Norberto Monahan M.D. on 09/16/2018 at 16:23 Approved by: Norberto Monahan M.D. on 09/16/2018 at 16:24 CT scan - head: Radiologist's impression: [facility] DATE TYPE STATUS AUTHOR Hx 09/16/18 18:34 Anca Beasley 09/16/18 17:05 Norberto Monahan 09/16/18 16:13 Norberto Monahan 09/16/18 16:13 Norberto Monahan 09/16/18 16:13 Norberto Monahan 09/16/18 16:13 Norberto Monahan 09/16/18 16:06 Norberto Monahan 09/16/18 16:06 Norberto Monahan Marlene F 82, F1935 ADM IN, ED.LOC - Main ED: R07 Search Chart No Data to Display NF - Not included in interaction checking No Data to Display Today 20:24 Cyndi Troncoso 82 F 1935 [place] [address] CT Scan Report Signed Patient: Cyndi Troncoso FMR#: [id number] : 1935cct:[id number] Age/Sex: 82 / FDate of Service: 09/16/18 Loc: ED Accession Number: [id number] Procedure: CT head/brain wo con Ordering Provider: Radha Pearson PUBLIC HEALTH TRAINING ASSISTANT- PROCEDURE: CT HEAD/BRAIN WO CON INDICATIONS: fall, hematoma lt forehead TECHNIQUE: Noncontrast 4.5 mm thick angled axial sections acquired from the foramen magnum to the vertex, with coronal and sagittal reformats. For radiation dose reduction, the following was used: automated exposure control, adjustment of mA and/or kV according to patient size. COMPARISON: None. FINDINGS: Image quality: Excellent. CSF spaces: Basal cisterns are patent. No extra-axial fluid collections. The ventricles are symmetric in size and shape. Brain: There is an 8mm focus of intraparenchymal hemorrhage is seen involving the right parietal lobe, as on series 4 image 62 and on the image 17. Focal low-density is seen involving the inferior right occipital lobe. There is cerebral volume loss for age, with resultant ventricular and sulcal prominence. There are periventricular and deep white matter chronic small vessel ischemic changes. There is intracranial internal carotid artery atherosclerosis. Skull and face: There is a left forehead/temporal hematoma seen. No underlying calvarial fracture is seen. Calvarium and visualized facial bones appear intact, without suspicious lesions. Sinuses: Visualized sinuses and mastoids are clear. IMPRESSION: An 8mm focus of intraparenchymal hemorrhage can be seen involving the right parietal lobe. Focal low density is seen involving the right inferior occipital lobe, which has the appearance of a remote infarction. Differential diagnosis includes an underlying mass with edema, yet this is considered to be less likely. When clinically appropriate, please consider a dedicated MRI with contrast for further evaluation (assuming that there is no contraindication). There is a left forehead/left temporal scalp hematoma, without an underlying calvarial fracture seen. Dictated by: Norberto Monahan M.D. on 09/16/2018 at 15:43 Approved by: Norberto Monahan M.D. on 09/16/2018 at 15:47 hip xray : Radiologist's impression: Chart Viewer Diagnostics DATE TYPE STATUS AUTHOR Hx 09/16/18 18:34 GaleAnca 09/16/18 17:05 [place],Norberto 09/16/18 16:13 Hero,Norberto 09/16/18 16:13 [place],Norberto 09/16/18 16:13 Hero,Norberto 09/16/18 16:13 Hero,Norberto 09/16/18 16:06 [place],Norberto 09/16/18 16:06 [place],Norberto Cyndi Troncoso 82, [id number] ADM IN, ED.LOC - Main ED: R07 Search Chart No Data to Display NF - Not included in interaction checking No Data to Display Today 20:24 Cyndi Troncoso 82 F 1935 [address] [address] XRay Report Signed Patient: Cyndi Troncoso FMR#: [id number] : 1935cct:[id number] Age/Sex: 82 / FDate of Service: 09/16/18 Loc: ED Accession Number: [id number] Procedure: XR hip w pel if done LT 2V Ordering Provider: Radha Pearson- PROCEDURE: XR HIP W PEL IF DONE LT 2V INDICATIONS: fall, hematoma lt forehead TECHNIQUE: AP pelvis with lateral view(s) of the left hip(s). COMPARISON: [facility], CR, XR KNEE LT 1TO2V, 09/16/2018, 16:22. [facility], CR, XR HAND RT 2V, 09/16/2018, 16:22. [facility], CR, XR HAND LT 2V, 09/16/2018, 16:22. [facility], CR, XR WRIST LT 2V, 09/16/2018, 16:22. [facility], CT, CT HEAD/BRAIN WO CON, 09/16/2018, 16:09. [facility], CR, PELVIS 1 OR 2 VIEWS, 09/06/2011, 12:29. FINDINGS: Bones: There is a potential nondisplaced fracture of the left superior pubic ramus. No additional focal bony abnormalities are seen. Left hip arthroplasty hardware is seen. No findings of hardware failure or hardware loosening are seen. There is moderate to severe superior joint space narrowing seen of right, with associated remodeling changes with subchondral sclerosis and osteophyte formation. Soft tissues: The visualized bowel gas pattern is normal. No suspicious soft tissue calcifications. Advanced arterial calcifications are seen. There is a left common iliac artery stent seen. IMPRESSION: Potential nondisplaced left superior pubic ramus fracture. Please correlate with focal tenderness. 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 Unremarkable left arthroplasty hardware. Dictated by: Norberto Monahan M.D. on 09/16/2018 at 16:26 Approved by: Norberto Monahan M.D. on 09/16/2018 at 16:28 ECG Data Attestation: I personally reviewed and interpreted this ECG as follows: Interpretation: Atrial fibrillation. Ventricular rate 69. No ST elevation or depression noted. No ectopy noted. MDM Narrative Medical decision making narrative: The patient is an 82-year-old female if who presents after ground level fall. She was found to have an intraparenchymal bleed, as well as a hip fracture as well as he wrist fracture. As the patient is DNAR and [employer] per her advanced directives, and with accordance of the wishes of her power of tax associate attorney, the patient was not transferred. Surgery and Orthopedics were consulted. The patient was admitted to the medicine service at this facility. She was evaluated by Dr. Martinez while she was in the emergency department. As per Orthopedics, her wrist fracture appears to be old. I did contact her power of tax associate attorney several times throughout her stay in the emergency department. I did confirm that the patient wishes to not be resuscitated and focus on comfort measures. <Lana Valles, DO - Last Filed: 09/17/18 02:30> Lab Data Lab Results 09/16/18 09/16/18 09/16/18 Range/Units 17:21 17:21 17:21 WBC 4.9 (4.5-11.0) X10^3/uL RBC 3.71 L (4.0-5.2) X10^6/uL Hgb 12.1 (12.0-16.0) g/dL Hct 36.1 (36-46) % MCV 97.4 (80-100) fL MCH 32.7 (26-34) PG MCHC 33.6 (30-36) % RDW 15.7 H (11.6-14.8) % Plt Count 118 L (150-400) X10^3/uL Neut % (Auto) 73.6 (50-75) % Lymph % (Auto) 8.6 L (25-40) % Grand % (Auto) 13.7 (3-14) % Eos % (Auto) 3.5 (2-4) % Baso % (Auto) 0.6 (0-2) % Neut # (Auto) 3600 (2736-3934) /uL Lymph # (Auto) 400 L (5593-1514) /uL Grand # (Auto) 700 (0-900) /uL Eos # (Auto) 200 (0-450) /uL Baso # (Auto) 0 (0-100) /uL PT 11.8 (10.1-12.7) SECONDS INR 1.0 (0.9-1.3) APTT 26 L (26.4-36.2) SECONDS Sodium 140 (137-145) mmol/L Potassium 4.2 (3.4-5.1) mmol/L Chloride 99 (98-107) mmol/L Carbon Dioxide 34 H (22-32) mmol/L BUN 33 H (7-17) mg/dL Creatinine 1.40 H (0.52-1.04) mg/dL Estimated GFR 36.1 L (>60) mL/min BUN/Creatinine Ratio 23.6 H (6-22) Glucose 125 H (80-110) mg/dL Calcium 9.0 (8.4-10.2) mg/dL Total Bilirubin 1.0 (0.2-1.3) mg/dL AST 39 H (14-36) IU/L ALT 36 (9-52) IU/L Alkaline Phosphatase 118 (38-126) U/L Total Protein 6.8 (6.3-8.2) g/dL Albumin 3.7 (3.5-5.0) g/dL Globulin 3.1 (1.7-4.1) g/dL Albumin/Globulin Ratio 1.2 (1.0-2.8) Blood Type Antibody Screen 09/16/18 Range/Units 17:21 WBC (4.5-11.0) X10^3/uL RBC (4.0-5.2) X10^6/uL Hgb (12.0-16.0) g/dL Hct (36-46) % MCV (80-100) fL MCH (26-34) PG MCHC (30-36) % RDW (11.6-14.8) % Plt Count (150-400) X10^3/uL Neut % (Auto) (50-75) % Lymph % (Auto) (25-40) % Grand % (Auto) (3-14) % Eos % (Auto) (2-4) % Baso % (Auto) (0-2) % Neut # (Auto) (3730-1380) /uL Lymph # (Auto) (8297-8283) /uL Grand # (Auto) (0-900) /uL Eos # (Auto) (0-450) /uL Baso # (Auto) (0-100) /uL PT (10.1-12.7) SECONDS INR (0.9-1.3) APTT (26.4-36.2) SECONDS Sodium (137-145) mmol/L Potassium (3.4-5.1) mmol/L Chloride (98-107) mmol/L Carbon Dioxide (22-32) mmol/L BUN (7-17) mg/dL Creatinine (0.52-1.04) mg/dL Estimated GFR (>60) mL/min BUN/Creatinine Ratio (6-22) Glucose (80-110) mg/dL Calcium (8.4-10.2) mg/dL Total Bilirubin (0.2-1.3) mg/dL AST (14-36) IU/L ALT (9-52) IU/L Alkaline Phosphatase (38-126) U/L Total Protein (6.3-8.2) g/dL Albumin (3.5-5.0) g/dL Globulin (1.7-4.1) g/dL Albumin/Globulin Ratio (1.0-2.8) Blood Type O Positive Antibody Screen Negative Discharge Plan Departure Patient Disposition: Admitted As Inpatient Clinical Impression: Hip fracture Discharge Date/Time: 09/16/18 21:35 Interventions: ED Discharge Assessment Last Done: 09/16/18 21:33 Admit Date/Time: 09/16/18 20:34 Admit Provider: Jose Mcgarry <Lana Valles DO - Last Filed: 09/17/18 02:30> Cosign ED Attending Cosangel luisature Attestation: I was immediately available in the department for consultation. Documentation has been reviewed. I agree with assessment and plan.
--- NOTE | 2018-09-16 18:03 | ED_ITS ---
HPI - Fall <Radha Pearson COREMAKER FLOOR-BC - Last Filed: 09/16/18 21:18> General Chief Complaint: Fall Stated Complaint: GLF Time Seen by Provider: 09/16/18 16:12 Source: patient and EMS Mode of arrival: EMS Limitations: altered mental status History of Present Illness HPI Narrative: The patient is an 82-year-old female with history of Alzheimer's, COPD, CKD, anemia, hypertension AFib and stroke who presents after a ground level fall. This was a witnessed trip and fall. She lives at [facility] here in [place]. She presents complaining of a bump on her head, left-sided hip pain, left-sided wrist and hand pain. She also complains of right hand pain. The patient does have a history of dementia, making interview very difficult. She denies any neck back or abdominal pain. She presents by EMS with no backboard and no collar. Related Data Home Medications Medication Instructions Recorded Confirmed Coenzyme Q10 (#COQ10) 100 mg PO QDAY #0 08/24/11 Multivitamin, Minerals, and 1 tab PO QDAY #0 08/24/11 (#CENTRUM SILVER) albuterol sulfate [Proventil HFA] 2 puff INH QIDPRN #8.5 gm 08/24/11 allopurinol 100 mg PO QDAY #0 08/24/11 amlodipine [Norvasc] 5 mg PO QDAY #0 08/24/11 cholecalciferol (vitamin D3) 1,000 iu PO QDAY #0 08/24/11 [Vitamin D3] hydrochlorothiazide 25 mg PO QDAY #0 08/24/11 lisinopril 30 mg PO BID #0 08/24/11 metoprolol tartrate 100 mg PO BID #0 08/24/11 montelukast [Singulair] 10 mg PO QDAY #0 08/24/11 pravastatin 80 mg PO HS #0 08/24/11 beclomethasone dipropionate [Qvar] 1 puff INH BID #0 02/16/12 naproxen sodium [Aleve] 220 mg PO PRN #0 02/16/12 prednisone OPHTH QDAY #0 02/16/12 Allergies Allergy/AdvReac Type Severity Reaction Status Date / Time From TYLENOL Allergy Unknown Uncoded 06/14/17 12:09 Review of Systems <LISA CuevasP-BC - Last Filed: 09/16/18 21:18> Review of Systems ROS Unobtainable: Unobtainable due to medical condition Exam <RHIANNA Cuevas-BC - Last Filed: 09/16/18 21:18> Narrative Exam Narrative: GENERAL: This is a well-nourished, well-developed patient, stating she wants to go home as she is fine HEAD: Noted left scalp hematoma. No pain to palpation scalp. EYES: Pupils equal round and reactive. Extraocular motions intact. No scleral icterus. No injection or drainage. ENT: Nose without bleeding, purulent drainage or septal hematoma. Throat without erythema, tonsillar hypertrophy or exudate. Uvula midline. Airway patent. NECK: Trachea midline. No JVD or lymphadenopathy. Supple, nontender, no meningeal signs. CARDIOVASCULAR: Regular rate and irregular rhythm. RESPIRATORY: Decreased bilaterally to auscultation. Breath sounds equal bilaterally. No wheezes, rales, or rhonchi. GASTROINTESTINAL: Abdomen soft, non-tender, nondistended. No hepato- splenomegaly, or palpable masses. No guarding. Active bowel sounds. EXTREMITIES: +1 edema noted. Using all extremities. Capillary refill intact. Patient is able to do thumbs up and thumbs down, linen attendant hands bilaterally. Pain to palpation bilateral hands as well as left wrist. Pain to palpation right knee. Able to lift both legs off the stretcher. Pelvis is stable to rock and palpation. Pain to palpation of left hip. BACK: Nontender without deformity or crepitance. No flank tenderness. NEURO: Alert. Oriented to place. Pleasantly confused. SKIN: Ecchymosis noted over left wrist. Skin tear 1 cm noted on left thumb. Ecchymosis noted left forehead. No periorbital ecchymosis. No Bar signs. Initial Vital Signs Initial Vital Signs: Vital Signs Temperature 96.9 F L 09/16/18 16:09 Pulse Rate 65 09/16/18 16:09 Respiratory Rate 22 09/16/18 16:09 Blood Pressure 141/79 H 09/16/18 16:09 Pulse Oximetry 98 09/16/18 16:09 <Lana Valles DO - Last Filed: 09/17/18 02:30> Initial Vital Signs Initial Vital Signs: Vital Signs Temperature 96.9 F L 09/16/18 16:09 Pulse Rate 65 09/16/18 16:09 Respiratory Rate 22 09/16/18 16:09 Blood Pressure 141/79 H 09/16/18 16:09 Pulse Oximetry 98 09/16/18 16:09 PFSH <Radha RHIANNA Pearson-BC - Last Filed: 09/16/18 21:18> Medical History AD (Alzheimer's disease) (Acute) Atrial fibrillation (Acute) COPD (chronic obstructive pulmonary disease) (Acute) Hypertension (Acute) Social History (Updated 09/16/18 @ 20:34 by Félix Martinez MD) additional social history: Lives in an assisted living facility Social History (Updated 09/16/18 @ 20:34 by Félix Martinez MD) additional social history: Lives in an assisted living facility Procedures <RHIANNA Cuevas-WATSON - Last Filed: 09/16/18 21:18> Orthopedic Splinting/Casting Injury #1: Side: left Upper Extremity Injury Location: wrist Upper Extremity Immobilizer: wrist splint Post splinting neuro exam: intact Post splinting vascular exam: intact Placed by: Nursing Additional Comments: Black Velcro brace placed as per Dr. Mtz from [facility]. Patient later removed brace and threw it across the room per nursing. Course <RHIANNA Cuevas-BC - Last Filed: 09/16/18 21:18> Course Narrative: Presented with a ground level fall. At approximately 4:00 p.m., I reviewed the patient's head CT results by EHR. It is noted that the patient has an intraparenchymal hemorrhage. Thus a modified trauma was called on the patient. The patient was placed in a C-collar. I spoke with the patient's DPOAPearl regarding the patient. She does not want the patient to be transferred to any other facility at this point time. She discusses that comfort care is the goal, which is reflected on the patient's POLST. A copy of the patient's POLST was obtained, illustrated DNAR with C D STRIPPER. However given the patient's brain bleed, I spoke with [facility] neuro surgery to see if they had any recommendations. They stated since the patient is C D STRIPPER they would not recommend transfer or any major intervention at this time. If desired another head CT could be reobtained in 4 hours. Given the patient's status, I contacted Dr. Mark for admission at 6:30 p.m.. He kindly agreed to accept the patient for inpatient status. I discussed that I would contact Trauma and Orthopedics given the patient's injury prior to transfer. After I spoke with surgery and Ortho, I also contacted the patient's DPOA to discuss the plan. Pearl was happy with the fact that the patient would be staying at this facility. Copies of the patient's POLST and power of real estate attorney. paperwork are in her chart at this point time. Orders Ordered: ED Orders 09/16/18 18:34 XR chest 1V Stat 09/16/18 20:09 Consult to Physician Stat 09/16/18 20:11 Consult to Physician Stat 09/16/18 22:13 Consult to Discharge Planning Routine 09/16/18 23:58 UA Complete [Urinalysis and Microscopic] Urgent 09/17/18 02:17 Consult to Hospice Referral Routine Consult to Space Studies Faculty Member Routine Acetaminophen (Tylenol) 650 mg PO Q6HR PRN PRN Reason: As Needed for Fever/Mild Pain Sodium Chloride (Normal Saline 0.9%) 1,000 mls @ 150 mls/hr IV CONT MUKUND Last Infusion: 09/16/18 21:27 Dose: 150 mls/hr Admin: 09/16/18 17:20 Dose: 150 mls/hr Morphine Sulfate (Morphine) 2 mg IV Q4HR PRN PRN Reason: Pain, Moderate (4-6) Discontinued Medications Acetaminophen (Tylenol) 325 mg PO Q6HR PRN PRN Reason: As Needed for Fever/Mild Pain Last Admin: 09/16/18 18:59 Dose: 325 mg Consultations Consultation #1: I spoke with Dr. Martinez regarding the patient for a trauma consultation. He came in to evaluate the patient. Time: 16:30 Consultation #2: I spoke with Dr. Mtz regarding the patient's orthopedic injuries. He states that the patient's wrist fracture is old and recommends a Velcro wrist brace. One was placed by nursing staff. Time: 17:00 Vital Signs - 8 hr 09/16/18 20:20 09/16/18 20:24 09/16/18 21:50 Temperature 96.5 F L Pulse Rate 85 77 88 Respiratory Rate 16 17 18 Blood Pressure 153/92 H Blood Pressure [Left Arm] 144/112 H 152/79 H Pulse Oximetry 100 100 09/17/18 00:35 09/17/18 00:40 Temperature 97.4 F L Pulse Rate 100 H Respiratory Rate 20 Blood Pressure 150/70 H Blood Pressure [Left Arm] Pulse Oximetry 97 97 <Lana Valles DO - Last Filed: 09/17/18 02:30> Orders Ordered: ED Orders 09/16/18 18:34 XR chest 1V Stat 09/16/18 20:09 Consult to Physician Stat 09/16/18 20:11 Consult to Physician Stat 09/16/18 22:13 Consult to Discharge Planning Routine 09/16/18 23:58 UA Complete [Urinalysis and Microscopic] Urgent 09/17/18 02:17 Consult to Hospice Referral Routine Consult to Space Studies Faculty Member Routine Acetaminophen (Tylenol) 650 mg PO Q6HR PRN PRN Reason: As Needed for Fever/Mild Pain Sodium Chloride (Normal Saline 0.9%) 1,000 mls @ 150 mls/hr IV CONT MUKUND Last Infusion: 09/16/18 21:27 Dose: 150 mls/hr Admin: 09/16/18 17:20 Dose: 150 mls/hr Morphine Sulfate (Morphine) 2 mg IV Q4HR PRN PRN Reason: Pain, Moderate (4-6) Discontinued Medications Acetaminophen (Tylenol) 325 mg PO Q6HR PRN PRN Reason: As Needed for Fever/Mild Pain Last Admin: 09/16/18 18:59 Dose: 325 mg Vital Signs - 8 hr 09/16/18 20:20 09/16/18 20:24 09/16/18 21:50 Temperature 96.5 F L Pulse Rate 85 77 88 Respiratory Rate 16 17 18 Blood Pressure 153/92 H Blood Pressure [Left Arm] 144/112 H 152/79 H Pulse Oximetry 100 100 09/17/18 00:35 09/17/18 00:40 Temperature 97.4 F L Pulse Rate 100 H Respiratory Rate 20 Blood Pressure 150/70 H Blood Pressure [Left Arm] Pulse Oximetry 97 97 MDM - Fall <SHIRLENE Cuevas - Last Filed: 09/16/18 21:18> Lab Data Result diagrams: 09/16/18 17:21 09/16/18 17:21 Lab Results 09/16/18 09/16/18 09/16/18 Range/Units 17:21 17:21 17:21 WBC 4.9 (4.5-11.0) X10^3/uL RBC 3.71 L (4.0-5.2) X10^6/uL Hgb 12.1 (12.0-16.0) g/dL Hct 36.1 (36-46) % MCV 97.4 (80-100) fL MCH 32.7 (26-34) PG MCHC 33.6 (30-36) % RDW 15.7 H (11.6-14.8) % Plt Count 118 L (150-400) X10^3/uL Neut % (Auto) 73.6 (50-75) % Lymph % (Auto) 8.6 L (25-40) % Worth % (Auto) 13.7 (3-14) % Eos % (Auto) 3.5 (2-4) % Baso % (Auto) 0.6 (0-2) % Neut # (Auto) 3600 (7400-6748) /uL Lymph # (Auto) 400 L (5881-5566) /uL Worth # (Auto) 700 (0-900) /uL Eos # (Auto) 200 (0-450) /uL Baso # (Auto) 0 (0-100) /uL PT 11.8 (10.1-12.7) SECONDS INR 1.0 (0.9-1.3) APTT 26 L (26.4-36.2) SECONDS Sodium 140 (137-145) mmol/L Potassium 4.2 (3.4-5.1) mmol/L Chloride 99 (98-107) mmol/L Carbon Dioxide 34 H (22-32) mmol/L BUN 33 H (7-17) mg/dL Creatinine 1.40 H (0.52-1.04) mg/dL Estimated GFR 36.1 L (>60) mL/min BUN/Creatinine Ratio 23.6 H (6-22) Glucose 125 H (80-110) mg/dL Calcium 9.0 (8.4-10.2) mg/dL Total Bilirubin 1.0 (0.2-1.3) mg/dL AST 39 H (14-36) IU/L ALT 36 (9-52) IU/L Alkaline Phosphatase 118 (38-126) U/L Total Protein 6.8 (6.3-8.2) g/dL Albumin 3.7 (3.5-5.0) g/dL Globulin 3.1 (1.7-4.1) g/dL Albumin/Globulin Ratio 1.2 (1.0-2.8) Blood Type Antibody Screen 09/16/18 Range/Units 17:21 WBC (4.5-11.0) X10^3/uL RBC (4.0-5.2) X10^6/uL Hgb (12.0-16.0) g/dL Hct (36-46) % MCV (80-100) fL MCH (26-34) PG MCHC (30-36) % RDW (11.6-14.8) % Plt Count (150-400) X10^3/uL Neut % (Auto) (50-75) % Lymph % (Auto) (25-40) % Worth % (Auto) (3-14) % Eos % (Auto) (2-4) % Baso % (Auto) (0-2) % Neut # (Auto) (1001-3881) /uL Lymph # (Auto) (8853-3304) /uL Worth # (Auto) (0-900) /uL Eos # (Auto) (0-450) /uL Baso # (Auto) (0-100) /uL PT (10.1-12.7) SECONDS INR (0.9-1.3) APTT (26.4-36.2) SECONDS Sodium (137-145) mmol/L Potassium (3.4-5.1) mmol/L Chloride (98-107) mmol/L Carbon Dioxide (22-32) mmol/L BUN (7-17) mg/dL Creatinine (0.52-1.04) mg/dL Estimated GFR (>60) mL/min BUN/Creatinine Ratio (6-22) Glucose (80-110) mg/dL Calcium (8.4-10.2) mg/dL Total Bilirubin (0.2-1.3) mg/dL AST (14-36) IU/L ALT (9-52) IU/L Alkaline Phosphatase (38-126) U/L Total Protein (6.3-8.2) g/dL Albumin (3.5-5.0) g/dL Globulin (1.7-4.1) g/dL Albumin/Globulin Ratio (1.0-2.8) Blood Type O Positive Antibody Screen Negative Imaging Data Chest x-ray: Radiologist's impression: [address] [address] XRay Report Signed Patient: Cyndi Troncoso FMR#: [id number] : 7Acct:[id number] Age/Sex: 82 / FDate of Service: 09/16/18 Loc: ED Accession Number: [id number] Procedure: XR chest 1V Ordering Provider: Radha Pearson PROCEDURE: XR CHEST 1V INDICATIONS: fall TECHNIQUE: One view of the chest was acquired. COMPARISON: None. FINDINGS: Surgical changes and devices: None. Lungs and pleura: Small pleural effusions. Increased pulmonary vascularity suggesting mild pulmonary edema. Left basilar opacity may be consolidation or atelectasis. No pneumothorax. Mediastinum: Mediastinal contours appear normal. Heart size is [id number] erely increased. Bones and chest wall: No suspicious bony lesions. Overlying soft tissues ernesto ear unremarkable. IMPRESSION: 1. Moderate to severe cardiomegaly and increased pulmonary vascularity suggesting mild pulmonary edema. 2. Small pleural effusions bilaterally. 3. Left basilar pneumonia or atelectasis. Dictated by: Vicki Beasley M.D. on 09/16/2018 at 19:11 Approved by: Vicki Beasley M.D. on 09/16/2018 at 19:13 CT C spine: Radiologist's impression: [address] [address] [address] Scan Report Signed Patient: Cyndi Troncoso FMR#: [id number] : 7Acct:[id number] Age/Sex: 82 / FDate of Service: 09/16/18 Loc: ED Accession Number: [id number] Procedure: CT cervical spine wo con Ordering Provider: Radha Pearson PROCEDURE: CT CERVICAL SPINE WO CON INDICATIONS: s/p witnessed fall, hematoma to forehead TECHNIQUE: Noncontrast 3 mm thick sections acquired from the skull base to the T4 level. Sagittal and coronal reformats were then constructed. For radiation dose reduction, the following was used: automated exposure control, adjustment of mA and/or kV according to patient size. COMPARISON: [facility], CR, XR WRIST LT 2V, 09/16/2018, 16:22. [facility], CR, XR HAND RT 2V, 09/16/2018, 16:22. [facility], CR, XR HIP W PEL IF DONE LT 2V, 09/16/2018, 16:22. [facility], CR, XR HAND LT 2V, 09/16/2018, 16:22. [facility], CR, XR KNEE LT 1TO2V, 09/16/2018, 16:22. [facility], CT, CT HE AD/BRAIN WO CON, 09/16/2018, 16:09. FINDINGS: Image quality: Excellent. Bones: No fractures or dislocations. Visualized superior ribs are intact. Advanced cervical spine degenerative changes are seen, with multiple levels of bony fusion. There is moderate to severe disc space narrowing at the C4-C5 and the C6-C7 levels. Bridging anterior osteophytes are seen from C3-C7. Calcified pannus can be seen posterior to the dens. Posteriorly directed osteophytes are seen at several levels, worst at C5-C6 and C6-C7. Age-appropriate osteopenia is seen. Soft tissues: Prevertebral soft tissues are normal in thickness. No paravertebral hematomas. There is a small left-sided pleural effusion. There is also partial visualization of apparent fluid along the right oblique fissure. No apical pneumothoraces. Prominent atherosclerotic calcification is noted. IMPRESSION: No acute fractures are detected. Advanced cervical spine degenerative changes are seen. Small left-sided pleural effusion. Dictated by: Norberto Monahan M.D. on 09/16/2018 at 16:44 Approved by: Norberto Monahan M.D. on 09/16/2018 at 16:47 right hand xray : Radiologist's impression: [address] [address] [address] Scan Report Signed Patient: Cyndi Troncoso FMR#: [id number] : 1935cct:[id number] Age/Sex: 82 / FDate of Service: 09/16/18 Loc: ED Accession Number: [id number] Procedure: CT cervical spine wo con Ordering Provider: Radha Pearson PROCEDURE: CT CERVICAL SPINE WO CON INDICATIONS: s/p witnessed fall, hematoma to forehead TECHNIQUE: Noncontrast 3 mm thick sections acquired from the skull base to the T4 level. Sagittal and coronal reformats were then constructed. For radiation dose reduction, the following was used: automated exposure control, adjustment of mA and/or kV according to patient size. COMPARISON: [facility], CR, XR WRIST LT 2V, 09/16/2018, 16:22. [facility], CR, XR HAND RT 2V, 09/16/2018, 16:22. [facility], CR, XR HIP W PEL IF DONE LT 2V, 09/16/2018, 16:22. [facility], CR, XR HAND LT 2V, 09/16/2018, 16:22. [facility], CR, XR KNEE LT 1TO2V, 09/16/2018, 16:22. [facility], CT, CT HEAD/BRAIN WO CON, 09/16/2018, 16:09. FINDINGS: Image quality: Excellent. Bones: No fractures or dislocations. Visualized superior ribs are intact. Advanced cervical spine degenerative changes are seen, with multiple levels of bony fusion. There is moderate to severe disc space narrowing at the C4-C5 and the C6-C7 levels. Bridging anterior osteophytes are seen from C3-C7. Calcified pannus can be seen posterior to the dens. Posteriorly directed osteophytes are seen at several levels, worst at C5-C6 and C6-C7. Age-appropriate osteopenia is seen. Soft tissues: Prevertebral soft tissues are normal in thickness. No paravertebral hematomas. There is a small left-sided pleural effusion. There is also partial visualization of apparent fluid along the right oblique fissure. No apical pneumothoraces. Prominent atherosclerotic calcification is noted. IMPRESSION: No acute fractures are detected. Advanced cervical spine degenerative changes are seen. Small left-sided pleural effusion. Dictated by: Norberto Monahan M.D. on 09/16/2018 at 16:44 Approved by: Norberto Monahan M.D. on 09/16/2018 at 16:47 left hand xray : Radiologist's impression: [address] [address] [address] Scan Report Signed Patient: Cyndi Troncoso FMR#: [id number] : 7Acct:[id number] Age/Sex: 82 / FDate of Service: 09/16/18 Loc: ED Accession Number: [id number] Procedure: CT cervical spine wo con Ordering Provider: Radha Pearson- PROCEDURE: CT CERVICAL SPINE WO CON INDICATIONS: s/p witnessed fall, hematoma to forehead TECHNIQUE: Noncontrast 3 mm thick sections acquired from the skull base to the T4 level. Sagittal and coronal reformats were then constructed. For radiation dose reduction, the following was used: automated exposure control, adjustment of mA and/or kV according to patient size. COMPARISON: [facility], CR, XR WRIST LT 2V, 09/16/2018, 16:22. [facility], CR, XR HAND RT 2V, 09/16/2018, 16:22. [facility], CR, XR HIP W PEL IF DONE LT 2V, 09/16/2018, 16:22. [facility], CR, XR HAND LT 2V, 09/16/2018, 16:22. [facility], CR, XR KNEE LT 1TO2V, 09/16/2018, 16:22. [facility], CT, CT HEAD/BRAIN WO CON, 09/16/2018, 16:09. FINDINGS: Image quality: Excellent. Bones: No fractures or dislocations. Visualized superior ribs are intact. Advanced cervical spine degenerative changes are seen, with multiple levels of bony fusion. There is moderate to severe disc space narrowing at the C4-C5 and the C6-C7 levels. Bridging anterior osteophytes are seen from C3-C7. Calcified pannus can be seen posterior to the dens. Posteriorly directed osteophytes are seen at several levels, worst at C5-C6 and C6-C7. Age-appropriate osteopenia is seen. Soft tissues: Prevertebral soft tissues are normal in thickness. No para vertebral hematomas. There is a small left-sided pleural effusion. There is also partial visualization of apparent fluid along the right oblique fissure. No apical pneumothoraces. Prominent atherosclerotic calcification is noted. IMPRESSION: No acute fractures are detected. Advanced cervical spine degenerative changes are seen. Small left-sided pleural effusion. Dictated by: Norberto Monahan M.D. on 09/16/2018 at 16:44 Approved by: Norberto Monahan M.D. on 09/16/2018 at 16:47 knee xray : Radiologist's impression: Cyndi Troncoso 82 F [address] [address] XRay Report Signed Patient: Cyndi Troncoso FMR#: [id number] : 1935cct:[id number] Age/Sex: 82 / FDate of Service: 09/16/18 Loc: ED Accession Number: [id number] Procedure: XR knee LT 1to2V Ordering Provider: Radha Pearson-WATSON PROCEDURE: XR KNEE LT 1TO2V INDICATIONS: pain sp glf TECHNIQUE: 2 views of the knee were acquired. COMPARISON: [facility], CR, XR HIP W PEL IF DONE LT 2V, 09/16/2018, 16:22. [facility], CR, XR HAND LT 2V, 09/16/2018, 16:22. [facility], CR, XR WRIST LT 2V, 09/16/2018, 16:22. [facility], CT, CT HEAD/BRAIN WO CON, 09/16/2018, 16:09. [facility], CR, XR HAND RT 2V, 09/16/2018, 16:22. [facility], CR, KNEE 1-2 VIEWS LEFT, 12/18/2007, 13:15. FINDINGS: Bones: No fractures or dislocations. No suspicious bony lesions. Left knee arthroplasty hardware is seen. No findings of hardware failure or hardware loosening are seen. Soft tissues: No joint effusion. No suspicious soft tissue calcifications. Atherosclerotic calcification is noted. IMPRESSION: Unremarkable left knee arthroplasty hardware. If there is point tenderness (or other clinical suspicion for a fracture not seen on these images) then a dedicated CT could be considered for further evaluation, as clinically appropriate. Dictated by: Norberto Monahan M.D. on 09/16/2018 at 16:30 Approved by: Norberto Monahan M.D. on 09/16/2018 at 16:31 left wrist xray : Radiologist's impression: Cyndi Troncoso 82 F [address] [address] XRay Report Signed Patient: Cyndi Troncoso FMR#: [id number] : 1935cct:[id number] Age/Sex: 82 / FDate of Service: 09/16/18 Loc: ED Accession Number: [id number] Procedure: XR wrist LT 2V Ordering Provider: Radha Pearson- PROCEDURE: XR WRIST LT 2V INDICATIONS: glf TECHNIQUE: 2 Views of the wrist were acquired. COMPARISON: [facility], CR, XR KNEE LT 1TO2V, 09/16/2018, 16:22. [facility], CR, XR HAND RT 2V, 09/16/2018, 16:22. [facility], CR, XR HIP W PEL IF DONE LT 2V, 09/16/2018, 16:22. [facility], CR, XR HAND LT 2V, 09/16/2018, 16:22. [facility], CT, CT HEAD/BRAIN WO CON, 09/16/2018, 16:09. FINDINGS: Bones: There is an intra-articular fracture seen involving the distal radius, including involving the radial styloid. There is an associated mildly displaced ulnar styloid fracture also seen. No carpal bone fracture is seen. There is advanced degenerative change seen of the radial aspect of the carpus. Soft tissues: Associated soft tissue swelling is seen. IMPRESSION: Intra-articular, comminuted distal radius fracture. Mildly displaced ulnar styloid fracture. Advanced degenerative change of the radial aspect of the carpus. Dictated by: Norberto Monahan M.D. on 09/16/2018 at 16:23 Approved by: Norberto Monahan M.D. on 09/16/2018 at 16:24 CT scan - head: Radiologist's impression: [facility] DATE TYPE STATUS AUTHOR Hx 09/16/18 18:34 Anca Beasley 09/16/18 17:05 Norberto Monahan 09/16/18 16:13 Norberto Monahan 09/16/18 16:13 Norberto Monahan 09/16/18 16:13 Norberto Monahan 09/16/18 16:13 Norberto Monahan 09/16/18 16:06 Norberto Monahan 09/16/18 16:06 Norberto Monahan Marlene F 82, F1935 ADM IN, ED.LOC - Main ED: R07 Search Chart No Data to Display NF - Not included in interaction checking No Data to Display Today 20:24 Cyndi Troncoso 82 F [address] [address] [address] Scan Report Signed Patient: Cyndi Troncoso FMR#: [id number] : 1935cct:[id number] Age/Sex: 82 / FDate of Service: 09/16/18 Loc: ED Accession Number: [id number] Procedure: CT head/brain wo con Ordering Provider: Radha PearsonP- PROCEDURE: CT HEAD/BRAIN WO CON INDICATIONS: fall, hematoma lt forehead TECHNIQUE: Noncontrast 4.5 mm thick angled axial sections acquired from the foramen magnum to the vertex, with coronal and sagittal reformats. For radiation dose reduction, the following was used: automated exposure control, adjustment of mA and/or kV according to patient size. COMPARISON: None. FINDINGS: Image quality: Excellent. CSF spaces: Basal cisterns are patent. No extra-axial fluid collections. The ventricles are symmetric in size and shape. Brain: There is an 8mm focus of intraparenchymal hemorrhage is seen involving the right parietal lobe, as on series 4 image 62 and on the image 17. Focal low-density is seen involving the inferior right occipital lobe. There is cerebral volume loss for age, with resultant ventricular and sulcal prominence. There are periventricular and deep white matter chronic small vessel ischemic changes. There is intracranial internal carotid artery atherosclerosis. Skull and face: There is a left forehead/temporal hematoma seen. No underlying calvarial fracture is seen. Calvarium and visualized facial bones appear inta ct, without suspicious lesions. Sinuses: Visualized sinuses and mastoids are clear. IMPRESSION: An 8mm focus of intraparenchymal hemorrhage can be seen involving the right parietal lobe. Focal low density is seen involving the right inferior occipital lobe, which has the appearance of a remote infarction. Differential diagnosis includes an underlying mass with edema, yet this is considered to be less likely. When clinically appropriate, please consider a dedicated MRI with contrast for further evaluation (assuming that there is no contraindication). There is a left forehead/left temporal scalp hematoma, without an underlying calvarial fracture seen. Dictated by: Norberto Monahan M.D. on 09/16/2018 at 15:43 Approved by: Norberto Monahan M.D. on 09/16/2018 at 15:47 hip xray : Radiologist's impression: Chart Viewer Diagnostics DATE TYPE STATUS AUTHOR Hx 09/16/18 18:34 GaleAnca 09/16/18 17:05 Baldwin,Norberto 09/16/18 16:13 Baldwin,Norberto 09/16/18 16:13 Baldwin,Norberto 09/16/18 16:13 Baldwin,Norberto 09/16/18 16:13 Baldwin,Norberto 09/16/18 16:06 Hero,Norberto 09/16/18 16:06 Baldwin,Norberto Cyndi Troncoso 82, [id number] ADM IN, ED.LOC - Main ED: R07 Search Chart No Data to Display NF - Not included in interaction checking No Data to Display Today 20:24 Cyndi Troncoso 82 F [address] [address] XRay Report Signed Patient: Cyndi Troncoso FMR#: [id number] : 1935cct:[id number] Age/Sex: 82 / FDate of Service: 09/16/18 Loc: ED Accession Number: [id number] Procedure: XR hip w pel if done LT 2V Ordering Provider: Radha Pearson [facility]- PROCEDURE: XR HIP W PEL IF DONE LT 2V INDICATIONS: fall, hematoma lt forehead TECHNIQUE: AP pelvis with lateral view(s) of the left hip(s). COMPARISON: [facility], CR, XR KNEE LT 1TO2V, 09/16/2018, 16:22. [facility], CR, XR HAND RT 2V, 09/16/2018, 16:22. [facility], CR, XR HAND LT 2V, 09/16/2018, 16:22. [facility], CR, XR WRIST LT 2V, 09/16/2018, 16:22. [facility], CT, CT HEAD/BRAIN WO CON, 09/16/2018, 16:09. [facility], CR, PELVIS 1 OR 2 VIEWS, 09/06/2011, 12:29. FINDINGS: Bones: There is a potential nondisplaced fracture of the left superior pubic ramus. No additional focal bony abnormalities are seen. Left hip arthroplasty hardware is seen. No findings of hardware failure or hardware loosening are seen. There is moderate to severe superior joint space narrowing seen of right, with associated remodeling changes with subchondral sclerosis and osteophyte formation. Soft tissues: The visualized bowel gas pattern is normal. No suspicious soft tissue calcifications. Advanced arterial calcifications are seen. There is a left common iliac artery stent seen. IMPRESSION: Potential nondisplaced left superior pubic ramus fracture. Please correlate with focal tenderness. 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 Unremarkable left arthroplasty hardware. Dictated by: Norberto Monahan M.D. on 09/16/2018 at 16:26 Approved by: Norberto Monahan M.D. on 09/16/2018 at 16:28 ECG Data Attestation: I personally reviewed and interpreted this ECG as follows: Interpretation: Atrial fibrillation. Ventricular rate 69. No ST elevation or depression noted. No ectopy noted. MDM Narrative Medical decision making narrative: The patient is an 82-year-old female if who presents after ground level fall. She was found to have an intraparenchymal bleed, as well as a hip fracture as well as he wrist fracture. 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 Surgery and Orthopedics were consulted. The patient was admitted to the medicine service at this facility. She was evaluated by Dr. Martinez while she was in the emergency department. As per Orthopedics, her wrist fracture appears to be old. I did contact her power of real estate attorney several times throughout her stay in the emergency department. I did confirm that the patient wishes to not be resuscitated and focus on comfort measures. <Lana Valles, DO - Last Filed: 09/17/18 02:30> Lab Data Lab Results 09/16/18 09/16/18 09/16/18 Range/Units 17:21 17:21 17:21 WBC 4.9 (4.5-11.0) X10^3/uL RBC 3.71 L (4.0-5.2) X10^6/uL Hgb 12.1 (12.0-16.0) g/dL Hct 36.1 (36-46) % MCV 97.4 (80-100) fL MCH 32.7 (26-34) PG MCHC 33.6 (30-36) % RDW 15.7 H (11.6-14.8) % Plt Count 118 L (150-400) X10^3/uL Neut % (Auto) 73.6 (50-75) % Lymph % (Auto) 8.6 L (25-40) % [place] % (Auto) 13.7 (3-14) % Eos % (Auto) 3.5 (2-4) % Baso % (Auto) 0.6 (0-2) % Neut # (Auto) 3600 (2036-7762) /uL Lymph # (Auto) 400 L (6591-8805) /uL [place] # (Auto) 700 (0-900) /uL Eos # (Auto) 200 (0-450) /uL Baso # (Auto) 0 (0-100) /uL PT 11.8 (10.1-12.7) SECONDS INR 1.0 (0.9-1.3) APTT 26 L (26.4-36.2) SECONDS Sodium 140 (137-145) mmol/L Potassium 4.2 (3.4-5.1) mmol/L Chloride 99 (98-107) mmol/L Carbon Dioxide 34 H (22-32) mmol/L BUN 33 H (7-17) mg/dL Creatinine 1.40 H (0.52-1.04) mg/dL Estimated GFR 36.1 L (>60) mL/min BUN/Creatinine Ratio 23.6 H (6-22) Glucose 125 H (80-110) mg/dL Calcium 9.0 (8.4-10.2) mg/dL Total Bilirubin 1.0 (0.2-1.3) mg/dL AST 39 H (14-36) IU/L ALT 36 (9-52) IU/L Alkaline Phosphatase 118 (38-126) U/L Total Protein 6.8 (6.3-8.2) g/dL Albumin 3.7 (3.5-5.0) g/dL Globulin 3.1 (1.7-4.1) g/dL Albumin/Globulin Ratio 1.2 (1.0-2.8) Blood Type Antibody Screen 09/16/18 Range/Units 17:21 WBC (4.5-11.0) X10^3/uL RBC (4.0-5.2) X10^6/uL Hgb (12.0-16.0) g/dL Hct (36-46) % MCV (80-100) fL MCH (26-34) PG MCHC (30-36) % RDW (11.6-14.8) % Plt Count (150-400) X10^3/uL Neut % (Auto) (50-75) % Lymph % (Auto) (25-40) % [place] % (Auto) (3-14) % Eos % (Auto) (2-4) % Baso % (Auto) (0-2) % Neut # (Auto) (9157-7997) /uL Lymph # (Auto) (8543-4950) /uL [place] # (Auto) (0-900) /uL Eos # (Auto) (0-450) /uL Baso # (Auto) (0-100) /uL PT (10.1-12.7) SECONDS INR (0.9-1.3) APTT (26.4-36.2) SECONDS Sodium (137-145) mmol/L Potassium (3.4-5.1) mmol/L Chloride (98-107) mmol/L Carbon Dioxide (22-32) mmol/L BUN (7-17) mg/dL Creatinine (0.52-1.04) mg/dL Estimated GFR (>60) mL/min BUN/Creatinine Ratio (6-22) Glucose (80-110) mg/dL Calcium (8.4-10.2) mg/dL Total Bilirubin (0.2-1.3) mg/dL AST (14-36) IU/L ALT (9-52) IU/L Alkaline Phosphatase (38-126) U/L Total Protein (6.3-8.2) g/dL Albumin (3.5-5.0) g/dL Globulin (1.7-4.1) g/dL Albumin/Globulin Ratio (1.0-2.8) Blood Type O Positive Antibody Screen Negative Discharge Plan Departure Patient Disposition: Admitted As Inpatient Clinical Impression: Hip fracture Discharge Date/Time: 09/16/18 21:35 Interventions: ED Discharge Assessment Last Done: 09/16/18 21:33 Admit Date/Time: 09/16/18 20:34 Admit Provider: Jose Mcgarry <Lana Valles DO - Last Filed: 09/17/18 02:30> Cosign ED Attending Ortizature Attestation: I was immediately available in the department for consultation. Documentation has been reviewed. I agree with assessment and plan.
[2018-09-16 18:19] VITALS: BP 149/85; PULSE 70; O2SAT 97
--- NOTE | 2018-09-16 18:34 | DI.RAD.S_ITS ---
PROCEDURE: XR CHEST 1V INDICATIONS: fall TECHNIQUE: One view of the chest was acquired. COMPARISON: None. FINDINGS: Surgical changes and devices: None. Lungs and pleura: Small pleural effusions. Increased pulmonary vascularity suggesting mild pulmonary edema. Left basilar opacity may be consolidation or atelectasis. No pneumothorax. Mediastinum: Mediastinal contours appear normal. Heart size is uxcnoglj-ma-lxlathmc increased. Bones and chest wall: No suspicious bony lesions. Overlying soft tissues appear unremarkable. IMPRESSION: 1. Moderate to severe cardiomegaly and increased pulmonary vascularity suggesting mild pulmonary edema. 2. Small pleural effusions bilaterally. 3. Left basilar pneumonia or atelectasis. Dictated by: Vicki Beasley M.D. on 09/16/2018 at 19:11 Approved by: Vicki Beasley M.D. on 09/16/2018 at 19:13
[2018-09-16] MEDS: ACETAMINOPHEN 325 MG TABLET PO (18:59)
[2018-09-16 20:20] VITALS: BP 144/112; PULSE 85; RESP 16; O2SAT 100
[2018-09-16 20:24] VITALS: BP 152/79; PULSE 77; RESP 17; O2SAT 100
--- NOTE | 2018-09-16 20:49 | P.CONS_ITS ---
History of Present Illness Date Patient Seen: 09/16/18 Time Patient Seen: 19:10 Chief complaint: GLF Reason for consult: Trauma Narrative: The patient is an 82-year-old woman who lived and an assisted living facility. She had a ground level fall today and was brought to the emergency room. I was asked to see her regarding her trauma. The patient has chronic dementia. She has had a massive stroke in the past. She comes with a pulsed form that directs comfort care only. She is not to be resuscitated and no tube feeding is to be done. The emergency room provider talked with the power of criminal attorney who was a lifelong friend of the patient. She confirmed that. [facility] Medical History (Updated 09/16/18 @ 18:02 [facility] AD (Alzheimer's disease) (Acute) Atrial fibrillation (Acute) COPD (chronic obstructive pulmonary disease) (Acute) Hypertension (Acute) Social History (Updated 09/16/18 @ 20:34 by Félix Martinez MD) additional social history: Lives in an assisted living facility Social History (Updated 09/16/18 @ 20:34 by Félix Martinez MD) additional social history: Lives in an assisted living facility Meds Home Medications Medication Instructions Recorded Confirmed Type Coenzyme Q10 (#COQ10) 100 mg PO QDAY #0 08/24/11 History Multivitamin, Minerals, and 1 tab PO QDAY #0 08/24/11 History (#CENTRUM SILVER) albuterol sulfate [Proventil HFA] 2 puff INH QIDPRN #8.5 gm 08/24/11 History allopurinol 100 mg PO QDAY #0 08/24/11 History amlodipine [Norvasc] 5 mg PO QDAY #0 08/24/11 History cholecalciferol (vitamin D3) 1,000 iu PO QDAY #0 08/24/11 History [Vitamin D3] hydrochlorothiazide 25 mg PO QDAY #0 08/24/11 History lisinopril 30 mg PO BID #0 08/24/11 History metoprolol tartrate 100 mg PO BID #0 08/24/11 History montelukast [Singulair] 10 mg PO QDAY #0 08/24/11 History pravastatin 80 mg PO HS #0 08/24/11 History beclomethasone dipropionate [Qvar] 1 puff INH BID #0 02/16/12 History naproxen sodium [Aleve] 220 mg PO PRN #0 02/16/12 History prednisone OPHTH QDAY #0 02/16/12 History Allergies Allergy/AdvReac Type Severity Reaction Status Date / Time From TYLENOL Allergy Unknown Uncoded 06/14/17 12:09 Review of Systems Review of Systems unobtainable due to mental status (Patient is oriented only to person. Answers are unreliable.) Exam Vital Signs (past 8 hours): - 09/16/18 16:09 09/16/18 17:20 09/16/18 18:19 Temperature 96.9 F L Pulse Rate 65 67 70 Respiratory Rate 22 20 Blood Pressure [Left Arm] 141/79 H 151/84 H 149/85 H Pulse Oximetry 98 100 97 09/16/18 20:20 09/16/18 20:24 Temperature Pulse Rate 85 77 Respiratory Rate 16 17 Blood Pressure [Left Arm] 144/112 H 152/79 H Pulse Oximetry 100 100 Oxygen Delivery Method Room Air Narrative Exam Narrative: Pleasant woman who follow simple commands. She is lying fairly still on the emergency room stretcher. No obvious distress laying still. Her eyes are nonicteric. Pupils are equal round reactive to light. Extraocular movements are grossly intact. Hearing is decreased but otherwise she hears well if spoken to loudly. Lungs are clear to auscultation with equal breath sounds. Lungs percuss equally. There is some mild anterior chest tenderness to palpation. No tenderness than lateral chest wall or posteriorly. No obvious bruising of the torso. Heart distant sounds but fairly regular. I do not appreciate a murmur or gallop. There is no heave lift or thrill. There is no bruit in the neck. Her abdomen is scaphoid and soft. There is no bruising. She has an incisional hernia and a scar in her lower abdomen in the midline. It is infra-umbilical. The hernia is under the top half of this vertical scar. There is no tenderness in the contents easily reduce. There are no masses. Pelvis is stable to compression laterally. The patient is moving all of her extremities. It is very difficult for me to tell how much function however there actually is peer she says she has pain trying to lift her legs and the only movement I really see is some dorsal and plantar pedal in flexion. I feel no pulses in any of the extremities that is at the wrist or feet. She has swelling of the lower extremities with some bronzing discoloration that appears to be chronic in the skin of her leg inferior 3rd. She has no tenderness of her cervical or thoracic spine areas. She has a hematoma of the left forehead. There is a mild abrasion at the center. The skin on both of her arms near the risks is deeply discolored. There appears to be a scar on the volar surface of the left wrist. There is mild tenderness at the left wrist. There is no tenderness of either thumb. She moves her thumbs well. Patient follow simple directions. She is not oriented to place /date/ age. The patient has no facial bone tenderness. Face is symmetric. Tongue is in the midline and uvula elevates in the midline. Objective Labs Result Diagrams: 09/16/18 17:21 09/16/18 17:21 Labs: Laboratory Results - last 24 hr 09/16/18 09/16/18 09/16/18 17:21 17:21 17:21 WBC 4.9 RBC 3.71 L Hgb 12.1 Hct 36.1 MCV 97.4 MCH 32.7 MCHC 33.6 RDW 15.7 H Plt Count 118 L Neut % (Auto) 73.6 Lymph % (Auto) 8.6 L [place] % (Auto) 13.7 Eos % (Auto) 3.5 Baso % (Auto) 0.6 Neut # (Auto) 3600 Lymph # (Auto) 400 L [place] # (Auto) 700 Eos # (Auto) 200 Baso # (Auto) 0 PT 11.8 INR 1.0 APTT 26 L Sodium 140 Potassium 4.2 Chloride 99 Carbon Dioxide 34 H BUN 33 H Creatinine 1.40 H Estimated GFR 36.1 L BUN/Creatinine Ratio 23.6 H Glucose 125 H Calcium 9.0 Total Bilirubin 1.0 AST 39 H ALT 36 Alkaline Phosphatase 118 Total Protein 6.8 Albumin 3.7 Globulin 3.1 Albumin/Globulin Ratio 1.2 Blood Type Antibody Screen 09/16/18 17:21 WBC RBC Hgb Hct MCV MCH MCHC RDW Plt Count Neut % (Auto) Lymph % (Auto) [place] % (Auto) Eos % (Auto) Baso % (Auto) Neut # (Auto) Lymph # (Auto) [place] # (Auto) Eos # (Auto) Baso # (Auto) PT INR APTT Sodium Potassium Chloride Carbon Dioxide BUN Creatinine Estimated GFR BUN/Creatinine Ratio Glucose Calcium Total Bilirubin AST ALT Alkaline Phosphatase Total Protein Albumin Globulin Albumin/Globulin Ratio Blood Type O Positive Antibody Screen Negative Assessment & Plan Assessment & Plan narrative: I reviewed her chest x-ray pelvis films, CT of the head and cervical spine, wrist and hand x-rays. She has severe osteopenia throughout her skeleton. She appears to have an intraparenchymal bleed that is small in her brain. She has evidence of a large old infarct. No obvious f ractures of her spine. No rib fractures seen on x-ray. Patient has a fracture at the wrist that apparently is old. She has a nondisplaced pelvic rim fracture. She has a contusion with a small laceration abrasion left forehead. She has significant dementia. Because she is here for comfort care only I have no recommendations other than for pain control. Cautious use of non narcotics such as Tylenol and gabapentin would be my initial recommendation. Low doses of narcotics may be helpful if pain is at an acceptable level. This may however complicate her GI function. I would avoid any Agent that affects her platelet function such as Toradol or nonsteroidal anti-inflammatory agents. I would also avoid DVT prophylaxis due to her head bleed and the potential for bleeding from her pelvis fracture. She can be given a diet as tolerated. Continued with her outpatient medication. No surgical intervention planned at this time. Recommendations regarding physical therapy, occupational therapy, weight-bearing etc should be referred to Dr. Valencia of the orthopedic department who has reviewed her images and been consulted.
--- NOTE | 2018-09-16 21:17 | P.HP_ITS ---
History of Present Illness Date Patient Seen: 09/16/18 Time Patient Seen: 21:12 Chief complaint: GLF Narrative: HPI is obtained via review of records and direct patient interview. The patient is an 82-year-old female w/ PMHx of Alzheimer?s, HTN, AFIB, CVA, COPD, CKD, and anemia. Patient is being transferred from [facility], an adult care facility, for further evaluation, after sustaining a ground level fall. The fall is reported as a trip and fall event, which is attributed to patient losing her footing /tripping over her own feet. The event was witnessed by staff at the care facility. There was an injury to the head. Patient is on aspirin. ED workup was reviewed. CT of the head revealed 8 mm focus of intraparenchymal hemorrhage (right parietal lobe). There is focal low densities of the right inferior occipital lobe, suggestive of remote infarction. Left forehead / scalp hematoma present w/o underlying call very ill fracture. CT of cervical spine revealed no acute fractures. Small left-sided pleural effusion was noted. Chest x-ray revealed moderate to severe cardiomegaly and concern for mild pulmonary edema. Small pleural effusions were noted bilaterally. There is a suspicion for left basilar pneumonia or atelectasis. Hip x-ray was concerning for a potential non-displaced left superior pubic ramus fracture. Wrist x-ray (left) is suggestive of intra-articular, comminuted distal radius fracture and mildly displaced ulnar styloid fracture. Vital signs fairly stable. T 96.9 BP 141/79 HR 65 RR 22 SpO2 98% on room air. Patient was seen by General Surgery. It was concluded that she has no operative trauma. It is commented that patient's orthopedic and intercranial injuries will not require intervention. It is being noted that her wrist fractures old, however she is having new pain at the site of injury. Patient is DNR/DNI stat us. Her overall baseline in regard to mobility and ability to perform ADLs is not entirely clear. She is known to have had stroke in the past, it is not known if there is any residual deficit. I have contacted the DPOA, Pearl (patient's lifelong friend). The DPOA was able to confirm that no lifesaving interventions or surgeries to take place. The DPOA did communicate desire for patient's pain to be treated acutely and for patient to be made comfortable. She is not entirely sure about pursuing hospice / palliative care status at this time and wishes to have that discussed in am. Patient History Medical History AD (Alzheimer's disease) (Acute) Atrial fibrillation (Acute) COPD (chronic obstructive pulmonary disease) (Acute) Hypertension (Acute) Social History (Updated 09/16/18 @ 20:34 by Félix Martinez MD) additional social history: Lives in an assisted living facility Family & Social History Social History: Resident of an adult family home. Meds Home Medications Medication Instructions Recorded Confirmed Type Coenzyme Q10 (#COQ10) 100 mg PO QDAY #0 08/24/11 History Multivitamin, Minerals, and 1 tab PO QDAY #0 08/24/11 History (#CENTRUM SILVER) albuterol sulfate [Proventil HFA] 2 puff INH QIDPRN #8.5 gm 08/24/11 History allopurinol 100 mg PO QDAY #0 08/24/11 History amlodipine [Norvasc] 5 mg PO QDAY #0 08/24/11 History cholecalciferol (vitamin D3) 1,000 iu PO QDAY #0 08/24/11 History [Vitamin D3] hydrochlorothiazide 25 mg PO QDAY #0 08/24/11 History lisinopril 30 mg PO BID #0 08/24/11 History metoprolol tartrate 100 mg PO BID #0 08/24/11 History montelukast [Singulair] 10 mg PO QDAY #0 08/24/11 History pravastatin 80 mg PO HS #0 08/24/11 History beclomethasone dipropionate [Qvar] 1 puff INH BID #0 02/16/12 History naproxen sodium [Aleve] 220 mg PO PRN #0 02/16/12 History prednisone OPHTH QDAY #0 02/16/12 History Allergies Allergy/AdvReac Type Severity Reaction Status Date / Time From TYLENOL Allergy Unknown Uncoded 06/14/17 12:09 Review of Systems Review of Systems unobtainable due to mental status (patient has dementia and is unable to further comment on ROS or HPI.) Exam Vital Signs (past 8 hours): - 09/16/18 16:09 09/16/18 17:20 09/16/18 18:19 Temperature 96.9 F L Pulse Rate 65 67 70 Respiratory Rate 22 20 Blood Pressure [Left Arm] 141/79 H 151/84 H 149/85 H Pulse Oximetry 98 100 97 09/16/18 20:20 09/16/18 20:24 Temperature Pulse Rate 85 77 Respiratory Rate 16 17 Blood Pressure [Left Arm] 144/112 H 152/79 H Pulse Oximetry 100 100 Oxygen Delivery Method Room Air Narrative Exam Narrative: Constitutional: Patient complaining of pain at her left wrist Neurologic: Awake. Alert. She is aware of being in the hospital, but unable to note the name of the hospital. Forgetful. Unable to tell me the year or month. Follows commands. Pupils equal and reactive. EOMI. Head: NC. Site of trauma / laceration over left forehead w/ obvious hematoma. Eyes: Pupils equal, round, and reactive. EOMI. Ears: external ears normal; no bismark-orbital bruising; no brusing over mastoid process; patient is hard of hearing Nose: external nose normal, no rhinorrhea or epistaxis Throat: MMM, oropharynx w/o exudate Neck: no masses, lymphadenopathy Chest / Respiratory: equal chest rise, mildly tachypneic, dyspneic with conversation breath sounds diminished w/ crackles Heart / CV: Irregularly irregular, distant tones Abdomen / GI: round, NT, ND, + BS, no organomegaly Peripheral / Vascular: BLE edema 2-3+ pitting w/ chronic venous stasis BUE remarkable for eccymosis Left hand with decreased sensation and slightly cooler than right hand. Musc: overall diminished ROM of BUE. She is able to move and flex at the left elbow. limited movement of BLE. Pain w/ passive leg rise bilaterally. Skin: extensive ecchymosis of extremities and face Objective Labs Result Diagrams: 09/16/18 17:21 09/16/18 17:21 Labs: Laboratory Results - last 24 hr 09/16/18 09/16/18 09/16/18 17:21 17:21 17:21 WBC 4.9 RBC 3.71 L Hgb 12.1 Hct 36.1 MCV 97.4 MCH 32.7 MCHC 33.6 RDW 15.7 H Plt Count 118 L Neut % (Auto) 73.6 Lymph % (Auto) 8.6 L [place] % (Auto) 13.7 Eos % (Auto) 3.5 Baso % (Auto) 0.6 Neut # (Auto) 3600 Lymph # (Auto) 400 L [place] # (Auto) 700 Eos # (Auto) 200 Baso # (Auto) 0 PT 11.8 INR 1.0 APTT 26 L Sodium 140 Potassium 4.2 Chloride 99 Carbon Dioxide 34 H BUN 33 H Creatinine 1.40 H Estimated GFR 36.1 L BUN/Creatinine Ratio 23.6 H Glucose 125 H Calcium 9.0 Total Bilirubin 1.0 AST 39 H ALT 36 Alkaline Phosphatase 118 Total Protein 6.8 Albumin 3.7 Globulin 3.1 Albumin/Globulin Ratio 1.2 Blood Type Antibody Screen 09/16/18 17:21 WBC RBC Hgb Hct MCV MCH MCHC RDW Plt Count Neut % (Auto) Lymph % (Auto) [place] % (Auto) Eos % (Auto) Baso % (Auto) Neut # (Auto) Lymph # (Auto) [place] # (Auto) Eos # (Auto) Baso # (Auto) PT INR APTT Sodium Potassium Chloride Carbon Dioxide BUN Creatinine Estimated GFR BUN/Creatinine Ratio Glucose Calcium Total Bilirubin AST ALT Alkaline Phosphatase Total Protein Albumin Globulin Albumin/Globulin Ratio Blood Type O Positive Antibody Screen Negative Assessment & Plan Assessment & Plan narrative: Patient is being admitted for acute pain management and comfort care Pain, acute secondary to acute fall and multitude fractures, present on admission, active - Tylenol and morphine prn - Consult social work for hospice consult, no aggressive interventions Intracranial hemorrhage, acute, present on admission, active - Does not warrant intervention at this time - Will keep her off aspirin and SQ heparin Pelvic fracture, acute, present on admission, active - Orthopedic surgery is consulted for further evaluation - Bedrest, supportive care - Consider PT/OT pending patient and caregiven expectations. Left wrist fracture, acute, present on admission, active - did not tolerate splint - neurovascular checks Q4H bilateraly Alzheimer's dementia (advanced w/ behavioral disturbance), chronic condition, present on admission, active - will give ativan and olanzapine prn as needed CKD III, chronic condition, present on admission, stable - sCr 1.4 and BUN 33, potentially at her baseline. Scr 1.2 in June 2018. Atrial fibrillation, chronic, present on admission, rate controlled - Previously on metoprolol 100 mg BID. Need to verify. Will place patient on 5 mg IV metoprolol Q6H until home BB dose verified. - RN GASTROENTEROLOGY on ASA, hold for now COPD w/o acute exacerbation, chronic condition, present on admission, stable - Duo-Neb Q6H prn It is at the patient comes from an adult longterm. There is no transfer record from the longterm available or patient's current medication list. Attempted to look up the longterm online; however, unable to reach directly as the number provided goes to a call center. Spoke to Pearl, who is presumed to be patient's DPOA, is noted in prior notes. However there is no record of Pearl being patient's DPOA to verify or a POLST form available. Different individuals are listed as next of kin for the patient. Will need to clarify this in the morning. Patient is DNR status. Unable to verify home med list, as it is not available. VTE: none. Holding ASA and SQ heparing for now due to findings of an incracranial bleed on CT.
[2018-09-16 21:50] VITALS: BP 153/92; PULSE 88; RESP 18; TEMP 35.8
--- NOTE | 2018-09-16 23:49 | PC.NURSE ---
2144- Pt arrived to room 223 from ED via bed. Pt with severe dementia, unable to answer any questions except hip hurts, and its broken. Pt declined tylenol or morphine. Pt did allow this typewriter mechanic to place a urinary catheter, and restart IV NS fluids @ 21. Pt brief changed after transfer, which pt was combative, but able to be redirected when only one staff member speaking. Pt with multiple dark blue bruises to all extremities, had a wrist splint to left wrist, but took it off and threw it while in ED, splint is now in personal bag, in closet. Pt asked this typewriter mechanic to get out of room, and is currently in good standings with PORTIA Huang. Bed alarm on. Call light in reach.
[2018-09-17] VITALS (11 sets, daily range): BP systolic 97–169; BP diastolic 53–100; PULSE 92–128; RESP 14–20; TEMP 36.3–37.1; O2SAT 94–97
[2018-09-17 02:28] LABS: RBC Urine None Seen (0-5/HPF)
[2018-09-17 02:30] LABS: Appearance Urine UA CLEAR; Bilirubin Urine UA NEGATIVE (NEGATIVE); Color Urine UA YELLOW; Glucose Urine UA NEGATIVE (Negative); Ketones Urine UA NEGATIVE (NEGATIVE); Leukocyte Esterase Urine UA 2+ (NEGATIVE); Nitrite Urine UA NEGATIVE (Negative); Occult Blood Urine UA NEGATIVE (Negative); Protein Urine UA NEGATIVE (Negative); Urobilinogen Urine UA 0.2 E.U./dL (0.2)
[2018-09-17 02:33] LABS: Amorphous Sediment Urine 1+; Bacteria Urine Moderate (10-30); WBC Urine 0-1/HPF (0-5/HPF)
[2018-09-17 02:34] LABS: Squamous Epithelial Cell Urine 0-1 /HPF (0-5/HPF)
[2018-09-17 02:35] LABS: Culture Indicated Urine Specimen Cultured
[2018-09-17] MEDS: MORPHINE 2 MG/ML INJ IV (03:24)
[2018-09-17] MEDS: SODIUM CHLORIDE 0.9% 1,000 ML 150 ML IV (04:15)
[2018-09-17] MEDS: LORazepam 2 MG/ML INJ 1 MG IV (04:51)
[2018-09-17] MEDS: METOPROLOL TARTRATE 5 MG/5 ML INJ IV (05:06)
--- NOTE | 2018-09-17 05:32 | PC.NURSE ---
JEFFREY Mcgarry notified pt. was restless all night even after the 2 mg. of Morphine IVP. Screaming, pulling out her gown, woods cath. & IV line. B/P after Lorazepam 158/80 & HR 117, ordered to give Metoprolol IV & tele inplaced. 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 107-109, Afib. 5 mg. of Metoprolol admin. & HR down to 95 & B/P 94/[address] notified. Rechecked B/P again now 97/53 & HR. 92. Pt. finally able to rest & sleep after medicated with 1 mg. of Lorazepam IVP. Will cont. POC & monitor.
--- NOTE | 2018-09-17 08:48 | P.PN_ITS ---
Subjective Date Patient Seen: 09/17/18 Time Patient Seen: 08:44 Interval history: Hospital day 2 with patient admitted for left distal radius ulnar fracture and nondisplaced left superior pubic ramus fracture. Dr. Mtz was consulted. Patient had ground level fall at her adult family home. She does have severe dementia. Patient has taken her wrist brace off and on Dr. Mtz reviewed her left wrist x-ray and thought it she may have an old fracture rather than new. Patient also complains of left hip area pain. 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 Patient was restless throughout the night and is finally sleeping. Exam Vital Signs (past 8 hours): - 09/17/18 05:00 09/17/18 05:08 09/17/18 05:35 Temperature 97.6 F 97.6 F Pulse Rate 117 H 117 H 92 H Respiratory Rate 20 20 Blood Pressure 158/80 H 158/80 H 97/53 L Pulse Oximetry 95 95 Oxygen Delivery Method Room Air Oxygen Flow Rate 0 Narrative Exam Narrative: Patient is sleeping soundly and I did not awaken the patient to allow her to sleep at request of nurses. Objective Labs Result Diagrams: 09/16/18 17:21 09/16/18 17:21 Labs: Laboratory Results - last 24 hr 09/16/18 09/16/18 09/16/18 17:21 17:21 17:21 WBC 4.9 RBC 3.71 L Hgb 12.1 Hct 36.1 MCV 97.4 MCH 32.7 MCHC 33.6 RDW 15.7 H Plt Count 118 L Neut % (Auto) 73.6 Lymph % (Auto) 8.6 L [place] % (Auto) 13.7 Eos % (Auto) 3.5 Baso % (Auto) 0.6 Neut # (Auto) 3600 Lymph # (Auto) 400 L [place] # (Auto) 700 Eos # (Auto) 200 Baso # (Auto) 0 PT 11.8 INR 1.0 APTT 26 L Sodium 140 Potassium 4.2 Chloride 99 Carbon Dioxide 34 H BUN 33 H Creatinine 1.40 H Estimated GFR 36.1 L BUN/Creatinine Ratio 23.6 H Glucose 125 H Calcium 9.0 Total Bilirubin 1.0 AST 39 H ALT 36 Alkaline Phosphatase 118 Total Protein 6.8 Albumin 3.7 Globulin 3.1 Albumin/Globulin Ratio 1.2 Urine Color Urine Appearance Urine pH Ur Specific [place] Urine Protein Urine Glucose (UA) Urine Ketones Urine Occult Blood Urine Nitrate Urine Bilirubin Urine Urobilinogen Ur Leukocyte Esterase Urine RBC Urine WBC Ur Squamous Epith Cells Amorphous Sediment Urine Bacteria Ur Culture Indicated? Blood Type Antibody Screen 09/16/18 09/16/18 17:21 23:58 WBC RBC Hgb Hct MCV MCH MCHC RDW Plt Count Neut % (Auto) Lymph % (Auto) [place] % (Auto) Eos % (Auto) Baso % (Auto) Neut # (Auto) Lymph # (Auto) [place] # (Auto) Eos # (Auto) Baso # (Auto) PT INR APTT Sodium Potassium Chloride Carbon Dioxide BUN Creatinine Estimated GFR BUN/Creatinine Ratio Glucose Calcium Total Bilirubin AST ALT Alkaline Phosphatase Total Protein Albumin Globulin Albumin/Globulin Ratio Urine Color Yellow Urine Appearance Clear Urine pH 7.0 Ur Specific [place] 1.020 Urine Protein Negative Urine Glucose (UA) Negative Urine Ketones Negative Urine Occult Blood Negative Urine Nitrate Negative Urine Bilirubin Negative Urine Urobilinogen 0.2 Ur Leukocyte Esterase 2+ H Urine RBC None seen Urine WBC 0-1/hpf Ur Squamous Epith Cells 0-1 /hpf Amorphous Sediment 1+ Urine Bacteria Moderate (10-30) H Ur Culture Indicated? Specimen cultured Blood Type O Positive Antibody Screen Negative Assessment & Plan Assessment & Plan narrative: Patient will use her left wrist brace as needed. Limited weight-bearing to left leg as tolerated. Patient is being followed by hospitalist for ongoing care. No orthopedic surgical intervention needed. Quality VTE Deep Vein Thrombosis/Pulmonary Embolism Present on Admission: No
--- NOTE | 2018-09-17 14:06 | PM.PN.1 ---
Subjective Date Patient Seen: 09/17/18 Interval history: Cyndi Troncoso is an 82-year-old female with a past medical history significant for Alzheimer?s dementia, hypertension, chronic atrial fibrillation, previous large CVA, COPD, chronic kidney disease and anemia who presented from [facility], for further evaluation after sustaining a ground level fall and was found to have intraparenchymal brain bleed, left superior pubic rami fracture, and old left distal radius and ulnar styloid fractures. Patient is being admitted for palliative comfort care. The patient is resting in bed and in no acute distress. She appears comfortable. She is delirious and does not make any comprehensible words or meaningful communication. She is voiding via woods catheter. Exam Vital Signs (past 8 hours): - 09/17/18 10:30 09/17/18 10:35 Temperature 97.9 F Pulse Rate 99 H Respiratory Rate 14 Blood Pressure 150/72 H Pulse Oximetry 97 95 Oxygen Delivery Method Room Air Oxygen Flow Rate 0 Narrative Exam Narrative: General: Elderly female lying in bed and in no acute distress, appears comfortable, does not make comprehensible sentences. HEENT: Normocephalic. Traumatic with left temporal hematoma and left suborbital ecchymoses. External ears without defect. Pupils equal, round, and reactive to light. Anicteric sclerae, moist conjunctivae, and no lid lag. Neck: Supple. No lymphadenopathy or thyromegaly. Cardiovascular: Irregularly irregular, mild tachycardia, without murmurs, rubs, or gallops appreciated. Pulmonary: Clear to auscultation bilaterally without crackles, wheezes, or rhonchi. Normal respiratory effort with no use of accessory muscles. Abdomen: Soft, bowel sounds present, nontender, nondistended. No hepatosplenomegaly or masses appreciated. Extremities: No clubbing, cyanosis, or edema. Scattered ecchymoses on bilateral upper and lower extremities. Skin: Normal temperature and texture; poor skin turgor; no rash, ulcers, or subcutaneous nodules appreciated. Neurological: Cranial nerves grossly intact. Psychiatric: Patient has advanced Alzheimer's dementia at baseline with superimposed delirium. Objective Labs Result Diagrams: 09/16/18 17:21 09/16/18 17:21 Labs: Laboratory Results - last 24 hr 09/16/18 09/16/18 09/16/18 17:21 17:21 17:21 WBC 4.9 RBC 3.71 L Hgb 12.1 Hct 36.1 MCV 97.4 MCH 32.7 MCHC 33.6 RDW 15.7 H Plt Count 118 L Neut % (Auto) 73.6 Lymph % (Auto) 8.6 L [place] % (Auto) 13.7 Eos % (Auto) 3.5 Baso % (Auto) 0.6 Neut # (Auto) 3600 Lymph # (Auto) 400 L [place] # (Auto) 700 Eos # (Auto) 200 Baso # (Auto) 0 PT 11.8 INR 1.0 APTT 26 L Sodium 140 Potassium 4.2 Chloride 99 Carbon Dioxide 34 H BUN 33 H Creatinine 1.40 H Estimated GFR 36.1 L BUN/Creatinine Ratio 23.6 H Glucose 125 H Calcium 9.0 Total Bilirubin 1.0 AST 39 H ALT 36 Alkaline Phosphatase 118 Total Protein 6.8 Albumin 3.7 Globulin 3.1 Albumin/Globulin Ratio 1.2 Urine Color Urine Appearance Urine pH Ur Specific [place] Urine Protein Urine Glucose (UA) Urine Ketones Urine Occult Blood Urine Nitrate Urine Bilirubin Urine Urobilinogen Ur Leukocyte Esterase Urine RBC Urine WBC Ur Squamous Epith Cells Amorphous Sediment Urine Bacteria Ur Culture Indicated? Blood Type Antibody Screen 09/16/18 09/16/18 17:21 23:58 WBC RBC Hgb Hct MCV MCH MCHC RDW Plt Count Neut % (Auto) Lymph % (Auto) [place] % (Auto) Eos % (Auto) Baso % (Auto) Neut # (Auto) Lymph # (Auto) [place] # (Auto) Eos # (Auto) Baso # (Auto) PT INR APTT Sodium Potassium Chloride Carbon Dioxide BUN Creatinine Estimated GFR BUN/Creatinine Ratio Glucose Calcium Total Bilirubin AST ALT Alkaline Phosphatase Total Protein Albumin Globulin Albumin/Globulin Ratio Urine Color Yellow Urine Appearance Clear Urine pH 7.0 Ur Specific [place] 1.020 Urine Protein Negative Urine Glucose (UA) Negative Urine Ketones Negative Urine Occult Blood Negative Urine Nitrate Negative Urine Bilirubin Negative Urine Urobilinogen 0.2 Ur Leukocyte Esterase 2+ H Urine RBC None seen Urine WBC 0-1/hpf Ur Squamous Epith Cells 0-1 /hpf Amorphous Sediment 1+ Urine Bacteria Moderate (10-30) H Ur Culture Indicated? Specimen cultured Blood Type O Positive Antibody Screen Negative Assessment & Plan Assessment & Plan narrative: Cyndi Troncoso is an 82-year-old female with a past medical history significant for Alzheimer?s dementia, hypertension, chronic atrial fibrillation, previous large CVA, COPD, chronic kidney disease and anemia who presented from [facility], for further evaluation after sustaining a ground level fall and was found to have intraparenchymal brain bleed, left superior pubic rami fracture, and old left distal radius and ulnar styloid fractures. Patient is being admitted for palliative comfort care. 1. Comfort Care measures. -Patient sustained ground level fall with subsequent left superior rami pelvic fracture and left distal radial and ulnar styloid fractures (possibly old?). - Discussed patient's care with the DPOA Pearl Dang who confirm patient is comfort care only which is consistent with previous POLST. DPOA paperwork obtained. -Continue comfort care measures. Ordered Tylenol 975 mg scheduled if taking in PO, morphine concentrate 5 mg SL every 4 hours, and lorazepam 0.5 SL every 6 hours. -Consulted social work for hospice consult, no aggressive interventions. 2. Acute intracranial hemorrhage, present on admission. Active. -CT brain demonstrated an 8mm focus of intraparenchymal hemorrhage of the right parietal lobe and old right inferior occipital lobe CVA. There is a left forehead/left temporal scalp hematoma, without an underlying calvarial fracture seen. -[place] neurology consulted in the ED and no intervention available for intraparenchymal bleed. -Hold aspirin and DVT prophylaxis. 3. Acute left superior rami pelvic fracture, present on admission. Active. -Orthopedic surgery consulted and no surgical intervention indicated. -Continue bed rest and comfort measures as above. 4. Acute left wrist fracture, present on admission. Active. -Patient did not tolerate splint. -Continue comfort measures as above. 5. Advanced alzheimer's dementia with behavioral disturbance, chronic, present on admission. Stable. -Continue comfort measures as above. 6.CKD III, chronic, present on admission. Stable. -Initial Cr 1.4 and BUN 33, potentially at her baseline. Scr 1.2 in June 2018. -Urinalysis grossly infected but per POLST and DPOA will elect for comfort measures only. 7. Atrial fibrillation, chronic, present on admission. Stable. -Currently rate controlled. -Previously on metoprolol 100 mg twice daily. Ordered metoprolol 5 mg IV every 6 hours as needed for tachyarrythmia. 8. COPD without acute exacerbation, chronic, present on admission. Stable. -Continue Duo-Neb every 6 hours as needed. It is at the patient comes from an adult retirement. There is no transfer record from the retirement available or patient's current medication list. Attempted to look up the retirement online; however, unable to reach directly as the number provided goes to a call center. Spoke to Pearl, who is presumed to be patient's DPOA, is noted in prior notes. However there is no record of Pearl being patient's DPOA to verify or a POLST form available. Different individuals are listed as next of kin for the patient. Will need to clarify this in the morning. Quality VTE Deep Vein Thrombosis/Pulmonary Embolism Present on Admission: No
--- NOTE | 2018-09-17 14:09 | P.PN_ITS ---
Subjective Date Patient Seen: 09/17/18 Interval history: Cyndi Troncoso is an 82-year-old female with a past medical history significant for Alzheimer?s dementia, hypertension, chronic atrial fibrillation, previous large CVA, COPD, chronic kidney disease and anemia who presented from [facility], for further evaluation after sustaining a ground level fall and was found to have intraparenchymal brain bleed, left superior pubic rami fracture, and old left distal radius and ulnar styloid fractures. Patient is being admitted for palliative comfort care. The patient is resting in bed and in no acute distress. She appears comfortable. She is delirious and does not make any comprehensible words or meaningful communication. She is voiding via woods catheter. Exam Vital Signs (past 8 hours): - 09/17/18 10:30 09/17/18 10:35 Temperature 97.9 F Pulse Rate 99 H Respiratory Rate 14 Blood Pressure 150/72 H Pulse Oximetry 97 95 Oxygen Delivery Method Room Air Oxygen Flow Rate 0 Narrative Exam Narrative: General: Elderly female lying in bed and in no acute distress, appears comf ortable, does not make comprehensible sentences. HEENT: Normocephalic. Traumatic with left temporal hematoma and left suborbital ecchymoses. External ears without defect. Pupils equal, round, and reactive to light. Anicteric sclerae, moist conjunctivae, and no lid lag. Neck: Supple. No lymphadenopathy or thyromegaly. Cardiovascular: Irregularly irregular, mild tachycardia, without murmurs, rubs, or gallops appreciated. Pulmonary: Clear to auscultation bilaterally without crackles, wheezes, or rhonchi. Normal respiratory effort with no use of accessory muscles. Abdomen: Soft, bowel sounds present, nontender, nondistended. No hepatosplenomegaly or masses appreciated. Extremities: No clubbing, cyanosis, or edema. Scattered ecchymoses on bilateral upper and lower extremities. Skin: Normal temperature and texture; poor skin turgor; no rash, ulcers, or subcutaneous nodules appreciated. Neurological: Cranial nerves grossly intact. Psychiatric: Patient has advanced Alzheimer's dementia at baseline with superimposed delirium. Objective Labs Result Diagrams: 09/16/18 17:21 09/16/18 17:21 Labs: Laboratory Results - last 24 hr 09/16/18 09/16/18 09/16/18 17:21 17:21 17:21 WBC 4.9 RBC 3.71 L Hgb 12.1 Hct 36.1 MCV 97.4 MCH 32.7 MCHC 33.6 RDW 15.7 H Plt Count 118 L Neut % (Auto) 73.6 Lymph % (Auto) 8.6 L Florence % (Auto) 13.7 Eos % (Auto) 3.5 Baso % (Auto) 0.6 Neut # (Auto) 3600 Lymph # (Auto) 400 L Florence # (Auto) 700 Eos # (Auto) 200 Baso # (Auto) 0 PT 11.8 INR 1.0 APTT 26 L Sodium 140 Potassium 4.2 Chloride 99 Carbon Dioxide 34 H BUN 33 H Creatinine 1.40 H Estimated GFR 36.1 L BUN/Creatinine Ratio 23.6 H Glucose 125 H Calcium 9.0 Total Bilirubin 1.0 AST 39 H ALT 36 Alkaline Phosphatase 118 Total Protein 6.8 Albumin 3.7 Globulin 3.1 Albumin/Globulin Ratio 1.2 Urine Color Urine Appearance Urine pH Ur Specific Girard Urine Protein Urine Glucose (UA) Urine Ketones Urine Occult Blood Urine Nitrate Urine Bilirubin Urine Urobilinogen Ur Leukocyte Esterase Urine RBC Urine WBC Ur Squamous Epith Cells Amorphous Sediment Urine Bacteria Ur Culture Indicated? Blood Type Antibody Screen 09/16/18 09/16/18 17:21 23:58 WBC RBC Hgb Hct MCV MCH MCHC RDW Plt Count Neut % (Auto) Lymph % (Auto) Florence % (Auto) Eos % (Auto) Baso % (Auto) Neut # (Auto) Lymph # (Auto) Florence # (Auto) Eos # (Auto) Baso # (Auto) PT INR APTT Sodium Potassium Chloride Carbon Dioxide BUN Creatinine Estimated GFR BUN/Creatinine Ratio Glucose Calcium Total Bilirubin AST ALT Alkaline Phosphatase Total Protein Albumin Globulin Albumin/Globulin Ratio Urine Color Yellow Urine Appearance Clear Urine pH 7.0 Ur Specific Girard 1.020 Urine Protein Negative Urine Glucose (UA) Negative Urine Ketones Negative Urine Occult Blood Negative Urine Nitrate Negative Urine Bilirubin Negative Urine Urobilinogen 0.2 Ur Leukocyte Esterase 2+ H Urine RBC None seen Urine WBC 0-1/hpf Ur Squamous Epith Cells 0-1 /hpf Amorphous Sediment 1+ Urine Bacteria Moderate (10-30) H Ur Culture Indicated? Specimen cultured Blood Type O Positive Antibody Screen Negative Assessment & Plan Assessment & Plan narrative: Cyndi Troncoso is an 82-year-old female with a past medical history significant for Alzheimer?s dementia, hypertension, chronic atrial fibrillation, previous large CVA, COPD, chronic kidney disease and anemia who presented from [facility], for further evaluation after sustaining a ground level fall and was found to have intraparenchymal brain bleed, left superior pubic rami fracture, and old left distal radius and ulnar styloid fractures. Patient is being admitted for palliative comfort care. 1. Comfort Care measures. -Patient sustained ground level fall with subsequent left superior rami pelvic fracture and left distal radial and ulnar styloid fractures (possibly old?). - Discussed patient's care with the DPOA Pearl Dang who confirm patient is comfort care only which is consistent with previous POLST. DPOA paperwork obtained. -Continue comfort care measures. Ordered Tylenol 975 mg scheduled if taking in PO, morphine concentrate 5 mg SL every 4 hours, and lorazepam 0.5 SL every 6 hours. -Consulted social work for hospice consult, no aggressive interventions. 2. Acute intracranial hemorrhage, present on admission. Active. -CT brain demonstrated an 8mm focus of intraparenchymal hemorrhage of the right parietal lobe and old right inferior occipital lobe CVA. There is a left forehead/left temporal scalp hematoma, without an underlying calvarial fracture seen. -[facility]es neurology consulted in the ED and no intervention available for intraparenchymal bleed. -Hold aspirin and DVT prophylaxis. 3. Acute left superior rami pelvic fracture, present on admission. Active. -Orthopedic surgery consulted and no surgical intervention indicated. -Continue bed rest and comfort measures as above. 4. Acute left wrist fracture, present on admission. Active. -Patient did not tolerate splint. -Continue comfort measures as above. 5. Advanced alzheimer's dementia with behavioral disturbance, chronic, present on admission. Stable. -Continue comfort measures as above. 6.CKD III, chronic, present on admission. Stable. -Initial Cr 1.4 and BUN 33, potentially at her baseline. Scr 1.2 in June 2018. -Urinalysis grossly infected but per POLST and DPOA will elect for comfort measures only. 7. Atrial fibrillation, chronic, present on admission. Stable. -Currently rate controlled. -Previously on metoprolol 100 mg twice daily. Ordered metoprolol 5 mg IV every 6 hours as needed for tachyarrythmia. 8. COPD without acute exacerbation, chronic, present on admission. Stable. -Continue Duo-Neb every 6 hours as needed. It is at the patient comes from an adult care home. There is no transfer record from the care home available or patient's current medication list. Attempted to look up the care home online; however, unable to reach directly as the number provided goes to a call center. Spoke to Pearl, who is presumed to be patient's DPOA, is noted in prior notes. However there is no record of Pearl being patient's DPOA to verify or a POLST form available. Different individuals are listed as next of kin for the patient. Will need to clarify this in the morning. Quality VTE Deep Vein Thrombosis/Pulmonary Embolism Present on Admission: No
--- NOTE | 2018-09-17 14:50 | PT.IIE ---
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, initial encounter (09/16/18) Medical History (Last Reviewed 09/16/18 @ 21:38 by JEFFREY Jaime) AD (Alzheimer's disease) (Acute) Atrial fibrillation (Acute) COPD (chronic obstructive pulmonary disease) (Acute) Hypertension (Acute) Physical Therapy Inpatient Evaluation/Re-Eval M1 PT/OT-IP Prior Functional Status Start: 09/17/18 15:34 Freq: NEEDED Status: Active Protocol: Document 09/17/18 14:50 RS (Rec: 09/17/18 15:52 RS [id number]) Medical Review Prior Functional Status Medical History Reviewed Yes Prior Functional Level (Other details) Pt not able to answer questions, no other family/ caregivers/friends present. per chart review pt lives at [facility], has dementia, is on comfort care but not hospice? Social History Household Members other Living Arrangements Adult Family Home Additional Social History Comment left voicemail at [facility] to attempt to get pt's PLOF M2 PT-IP Current Condition Start: 09/17/18 15:34 Freq: NEEDED Status: Active Protocol: Document 09/17/18 14:50 RS (Rec: 09/17/18 15:52 RS [id number]) Physical Therapy Current Condition Current Condition Evaluation Date 09/17/18 Treatment Diagnosis debility - L pubic rami fx, intraparenchymal bleed Onset Date 09/16/18 M3 PT-IP Subjective Start: 09/17/18 15:34 Freq: NEEDED Status: Active Protocol: Document 09/17/18 14:50 RS (Rec: 09/17/18 15:52 RS [id number]) Subjective Physical Therapy Visit Type Type Initial Evaluation Visit Start Time 14:30 Visit Stop Time 14:50 Total Visit Minutes 20 Physical Therapy Visit Comments Patient Comments Pt unable to answer any questions, resistant to participate but ultimately agreeable. Patient Goals Pt unable to state M4 PT-IP Mobility and Gait Start: 09/17/18 15:34 Freq: NEEDED Status: Active Protocol: Document 09/17/18 14:50 RS (Rec: 09/17/18 15:52 RS [id number]) PT-Transfer Assessment Comments Mobility Comments Pt unable to safely participate in bed mobility, pt physically resisting all assist, very confused. Manual transfers also not attempted for the same reason. If pt is needing to transfer, recommend mechanical lift. Gait Assessment Comments Gait Comments Not appropriate to assess Stair Climbing Assessment Comments Stair Climbing Comments not appropriate to assess M5 PT-IP Objective Assessments Start: 09/17/18 15:34 Freq: NEEDED Status: Active Protocol: Document 09/17/18 14:50 RS (Rec: 09/17/18 15:52 RS [id number]) Orientation Orientation/Cognition Level of Alertness Confusional State Safety Awareness Decreased Safety Awareness Memory Description Short Term Impaired Wholesale Account Manager Impaired Gross Range of Motion Upper Extremity ROM Impairments pt able to move arms, did not formally test to end-range, but appears WFL Lower Extremity ROM Impairments pt able to move both legs, LLE seems slightly more limited, did not formally test to end- range due to pain and confusion. Strength Comments Strength Comments pt has some active movement against gravity in BLE, LLE is more impaired, likely due to pain. Formal MMT not performed due to significant confusion and pain M7 PT-IP Assessment and Plan Start: 09/17/18 15:34 Freq: NEEDED Status: Active Protocol: Document 09/17/18 14:50 RS (Rec: 09/17/18 15:52 RS [id number]) PT Summary Assessment and Plan Potential Rehabilitation Potential Poor Status of Condition at Evaluation Evolving Summary Impairments Pain ROM Strength Cognition Bed Mobility Transfers Gait Activity Tolerance Assessment Summary Pt presents with significant debility that is complicated by cognitive impairment, semi- hostile confusion, and likely high correlated pain. Patient is not a rehab candidate, likely would not make any functional progress by participating in SNF rehab. Patient/decision-makers have also requested comfort care measures only. For both of these reasons, recommend pt transition to a setting with 24/7 assist for all mobility and self-care. Will need a facility that has mechanical lift and hospital bed. Pt has no acute therapy goals/needs, will sign off. Frequency of Treatment Frequency Of Treatment Discharge Recommendations To Nursing Amount of Assist Needed Mechanical Lift Discharge Recommendations PT Discharge Recommendations Home with 24/7 Assist
--- NOTE | 2018-09-17 15:59 | CM.DANOTE ---
DCP/Assessment: Reviewed chart. Patient is a 82yr old female admitted to [facility] after [facility]. Primary payor is 1)Medicare 2) for Life. No identified PCP on demographic sheet. Patient currently resides at [facility] in [place]. Contact is Jackie Hernandez # [phone]. DPOA is friend/Ramone cell# [phone]. RATE ENGINEER met with Ramone today to discuss d/c plan. Per Dr. Gutierrez, in AM rounds patient/DPOA requesting comfort care. Obtained DPOA/POLST forms from Ramnoe. Spoke with Jackie at [facility], she reports that patient can return on hospice. Placed call to hospice at approximately 11:00AM, spoke with Rosalind she reports that she is unsure when they can do information visit or open case? Faxed all clinicals and copy of POLST to hospice. At 2:00pm had not heard back from hospice about information visit time? Therefore, placed call to supervisor housecleaner/Abigail she reports that information visit will be scheduled with DPOA for tomorrow in AM. Abigail provided with name/number to coordinate. P: Anticipate return to [facility] with hospice when arrangements completed. KAILA Chow Discharge Planning/Care Management CM Discharge Assessment Start: 09/17/18 15:23 Freq: Status: Active Protocol: Document 09/17/18 15:23 KJS (Rec: 09/17/18 15:59 KJS [id number]) Discharge Planning Assessment Assigned Coffee Farmer KAILA Chow DPOA/Assigned Designee Name Ramone Dang # Advance Directives? Yes Advance Directives on File Yes History Provided By Friend Medical Record Has Patient been admitted in last 30 No days? Prior Living Arrangements Adult Family Home Household Members caregiver Type of transporation used prior to Relies on Others admit Willing to Return to Facility? Yes Independent with ADL's No Is patient alert and oriented? No Needs Assistance With Bathing Eating Grooming Meal Prep Toileting Managing Medications Home Chores / Shopping Caregiver for Another No DME Already Rented / Owned Hospital Bed Barriers to Discharge No Discharge Plan Hospice Transportation Arrangement Non-urgent BLS transport. Referrals Initiated Other Additional Comment Hospice Review Status In Process Next Review Type Continued Stay Review
--- NOTE | 2018-09-17 22:21 | PC.NURSE ---
Evening note: Cyndi dozes at times, mostly awake this evening, speech slurred but some words clear, saying he knows the nose and javier-dose repeatedly, saying few words at a time which rhyme, then chuckling to self and smiling at nurse. She is fidgety at times with linens & IV tubing occasionally, IV leaking scant amt bright sang blood on linen, when assessed found IV cannula mostly pulled out. When I tried to save IV, site bled and would not stop. IV removed, pressure drsg applied, took approx 20 minutes to stop RAC from bleeding, pressure drsg left on. She verbally denied pain multiple times. Refused PO Tylenol saying 'I just don't need it. When I asked if she had a headache she said nuh-uh. I notified Nura MURPHY that patient has no IV access, she said it OK to leave IV out at this point.
[2018-09-18] MEDS: MORPHINE 10 MG/0.5 ML ORAL SYRINGE 5 MG PO ×2 (00:18→06:42)
[2018-09-18 00:25] VITALS: O2SAT 96
--- NOTE | 2018-09-18 04:46 | PC.NURSE ---
Pt is oriented to self. Confused but pleasant. Pt had some pain tonight and was hypertensive, was medicated w/ 5mg morphine at 0010. Pt has been sleeping soundly. Pt has bilateral lower extremity edema.
[2018-09-18 05:03] VITALS: BP 140/81; PULSE 111; RESP 18; TEMP 36.9; O2SAT 96
[2018-09-18 07:30] VITALS: BP 187/99; PULSE 110; RESP 25; TEMP 36.9; O2SAT 95; O2SAT 97
--- NOTE | 2018-09-18 10:01 | PM.PN.1 ---
Subjective Date Patient Seen: 09/18/18 Time Patient Seen: 07:01 Interval history: Patient lying in bed asleep. Patient admitted for left distal radius ulnar fracture and nondisplaced left superior pubic ramus fracture. Dr. Mtz was consulted. Patient had ground level fall at her adult family home. She does have severe dementia. Patient has taken her wrist brace off and on Dr. Mtz reviewed her left wrist x-ray and thought it she may have an old fracture rather than new. 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 Exam Vital Signs (past 8 hours): - 09/18/18 05:03 09/18/18 07:30 Temperature 98.4 F 98.4 F Pulse Rate 111 H 110 H Respiratory Rate 18 25 H Blood Pressure 140/81 187/99 H Pulse Oximetry 96 95 Oxygen Delivery Method Room Air Oxygen Flow Rate 0 Narrative Exam Narrative: Patient sitting up in bed asleep. Left wrist swollen with some echymosis. She does have some swelling. Calves are soft, compressible, and nontender bilaterally. Pulses are symmetrical. Objective Labs Result Diagrams: 09/16/18 17:21 09/16/18 17:21 Assessment & Plan (1) Hip fracture: Problem details: Patient will use her left wrist brace as needed. Limited weight-bearing to left leg as tolerated. Patient is being followed by hospitalist for ongoing care. No orthopedic surgical intervention needed. Qualifiers: Encounter type: Fracture healing: Fracture type: Laterality: Open fracture type: Current visit: Yes Status: Acute Quality VTE Deep Vein Thrombosis/Pulmonary Embolism Present on Admission: No
[2018-09-18] MEDS: ACETAMINOPHEN 325 MG TABLET 975 MG PO (10:08)
[2018-09-18] MEDS: GABAPENTIN 300 MG CAPSULE PO (10:09)
--- NOTE | 2018-09-18 11:19 | PM.DS.1 ---
History of Present Illness Date Patient Seen: 09/16/18 Chief complaint: GLF Narrative: Written by Jose HORNP: HPI is obtained via review of records and direct patient interview. The patient is an 82-year-old female w/ PMHx of Alzheimer?s, HTN, AFIB, CVA, COPD, CKD, and anemia. Patient is being transferred from [facility] an adult care facility, for further evaluation, after sustaining a ground level fall. The fall is reported as a trip and fall event, which is attributed to patient losing her footing /tripping over her own feet. The event was witnessed by staff at the care facility. There was an injury to the head. Patient is on aspirin. ED workup was reviewed. CT of the head revealed 8 mm focus of intraparenchymal hemorrhage (right parietal lobe). There is focal low densities of the right inferior occipital lobe, suggestive of remote infarction. Left forehead / scalp hematoma present w/o underlying call very ill fracture. CT of cervical spine revealed no acute fractures. Small left-sided pleural effusion was noted. Chest x-ray revealed moderate to severe cardiomegaly and concern for mild pulmonary edema. Small pleural effusions were noted bilaterally. There is a suspicion for left basilar pneumonia or atelectasis. Hip x-ray was concerning for a potential non-displaced left superior pubic ramus fracture. Wrist x-ray (left) is suggestive of intra-articular, comminuted distal radius fracture and mildly displaced ulnar styloid fracture. Vital signs fairly stable. T 96.9 BP 141/79 HR 65 RR 22 SpO2 98% on room air. Patient was seen by General Surgery. It was concluded that she has no operative trauma. It is commented that patient's orthopedic and intercranial injuries will not require intervention. It is being noted that her wrist fractures old, however she is having new pain at the site of injury. Patient is DNR/DNI status. Her overall baseline in regard to mobility and ability to perform ADLs is not entirely clear. She is known to have had stroke in the past, it is not known if there is any residual deficit. I have contacted the DPOA, Pearl (patient's lifelong friend). The DPOA was able to confirm that no lifesaving interventions or surgeries to take place. The DPOA did communicate desire for patient's pain to be treated acutely and for patient to be made comfortable. She is not entirely sure about pursuing hospice / palliative care status at this time and wishes to have that discussed in am. Discharge Providers Date of admission: 09/16/18 20:34 Discharge Date: 09/18/18 Primary care physician: Aldo Jeronimo ND Consults: 09/16/18 20:09 Consult to Physician Stat Comment: Consulting Provider: [facility] Reason for consultation: trauma Has provider been notified: Yes 09/16/18 20:11 Consult to Physician Stat Comment: Consulting Provider: [facility] Reason for consultation: fracture, fall Has provider been notified: Yes 09/16/18 22:13 Consult to Discharge Planning Routine Comment: 09/17/18 02:17 Consult to Hospice Referral Routine Comment: Consult to Executive Director Of Marketing Routine Comment: hospice consult 09/17/18 12:12 Consult to Physical Therapy Evaluate & Treat Comment: Physician Instructions: Evaluate and Treat Discharge provider: July Gutierrez DO Summary Discharge Diagnosis: 1. Comfort Care measures. 2. Acute intracranial hemorrhage, present on admission. Active. 3. Acute left superior rami pelvic fracture, present on admission. Active. 4. Acute left wrist fracture, present on admission. Active. 5. Advanced alzheimer's dementia with behavioral disturbance, chronic, present on admission. Stable. 6.CKD III, chronic, present on admission. Stable. 7. Atrial fibrillation, chronic, present on admission. Stable. 8. COPD without acute exacerbation, chronic, present on admission. Stable. Hospital Course: Cyndi Troncoso is an 82-year-old female with a past medical history significant for Alzheimer?s dementia, hypertension, chronic atrial fibrillation, previous large CVA, COPD, chronic kidney disease and anemia who presented from [facility], for further evaluation after sustaining a ground level fall and was found to have intraparenchymal brain bleed, left superior pubic rami fracture, and old left distal radius and ulnar styloid fractures. Patient is being admitted for palliative comfort care. 1. Comfort Care measures. -Patient sustained ground level fall with subsequent left superior rami pelvic fracture and left distal radial and ulnar styloid fractures (possibly old?). -Discussed patient's care with the DPOA Pearl Dang who confirmed patient is comfort care only which is consistent with previous POLST. DPOA paperwork obtained. -Continued comfort care measures. Ordered Tylenol 975 mg scheduled and gabapentin 300 mg twice daily if taking in PO, morphine concentrate 5 mg SL every 4 hours, and lorazepam 0.5 SL every 6 hours. -Discharged to half-way on comfort care with hospice to open in the next several days. Patient continues to appear rather imminent although able to awake and converse a little. 2. Acute intracranial hemorrhage, present on admission. Active. -CT brain demonstrated an 8mm focus of intraparenchymal hemorrhage of the right parietal lobe and old right inferior occipital lobe CVA. There is a left forehead/left temporal scalp hematoma, without an underlying calvarial fracture seen. -Urdu neurology consulted in the ED and no neurological/surgical intervention available for intraparenchymal bleed. -Discontinued aspirin and did not initiate DVT prophylaxis. 3. Acute left superior rami pelvic fracture, present on admission. Active. -Orthopedic surgery consulted and no surgical intervention indicated. -Continued bed rest and comfort measures as above. 4. Acute left wrist fracture, present on admission. Active. -Patient did not tolerate splint. -Continued comfort measures as above. 5. Advanced alzheimer's dementia with behavioral disturbance, chronic, present on admission. Stable. -Continued comfort measures as above. 6.CKD III, chronic, present on admission. Stable. -Initial Cr 1.4 and BUN 33, potentially at her baseline. Scr 1.2 in June 2018. -Urinalysis appeared grossly infected but per POLST and DPOA will elect for comfort measures only, therefore, antibiotics were not initiated. Urine culture preliminarily has no growth. 7. Atrial fibrillation, chronic, present on admission. Stable. -Currently rate controlled. -Previously on metoprolol 100 mg twice daily. Ordered metoprolol 5 mg IV every 6 hours as needed for tachyarrythmia. 8. COPD without acute exacerbation, chronic, present on admission. Stable. -Continued Duo-Neb every 6 hours as needed. Status at Discharge Cognitive/behavioral status at discharge: at baseline, confused Functional status at discharge: bed bound Overall status at discharge: patient is not back to baseline Exam Vital Signs (past 8 hours): - 09/18/18 05:03 09/18/18 07:30 Temperature 98.4 F 98.4 F Pulse Rate 111 H 110 H Respiratory Rate 18 25 H Blood Pressure 140/81 187/99 H Pulse Oximetry 96 95 Oxygen Delivery Method Room Air Oxygen Flow Rate 0 Narrative Exam Narrative: General: Elderly thin, frail, cachectic female lying in bed and in no acute distress, appears comfortable, able to converse a little but has significant dementia with brain bleed unclear how well she understands her condition. Although awake and able to converse appears rather imminent. HEENT: Normocephalic. Traumatic with left temporal hematoma and left suborbital ecchymoses. External ears without defect. Pupils equal, round, and reactive to light. Anicteric sclerae, moist conjunctivae, and no lid lag. Neck: Supple. No lymphadenopathy or thyromegaly. Cardiovascular: Irregularly irregular, mild tachycardia, without murmurs, rubs, or gallops appreciated. Pulmonary: Clear to auscultation bilaterally without crackles, wheezes, or rhonchi. Normal respiratory effort with no use of accessory muscles. Abdomen: Soft, bowel sounds present, nontender, nondistended. No hepatosplenomegaly or masses appreciated. Extremities: No clubbing, cyanosis, or edema. Scattered ecchymoses on bilateral upper and lower extremities. Skin: Normal temperature and texture; poor skin turgor; no rash, ulcers, or subcutaneous nodules appreciated. Neurological: Cranial nerves grossly intact. Psychiatric: Patient has advanced Alzheimer's dementia at baseline with superimposed delirium secondary to brain bleed. Objective Labs Result Diagrams: 09/16/18 17:21 09/16/18 17:21 Discharge Plan Discharge Plan Patient Disposition: Hospice - Home Discharge comment: May give morphine or lorazepam as prescribed for discomfort, pain, or anxiety/agitation or objective findings such as brow furrowing, fast breathing rate, moving around aimlessly in bed, etc. Discharge Med Rec/Prescriptions Prescriptions: New lorazepam [Lorazepam Intensol] 2 mg/mL Concentrate 0.5 mg PO Q4HR PRN (Reason: Anxiety) Qty: 30 RF: 0 morphine concentrate 100 mg/5 mL (20 mg/mL) solution 5 mg PO Q2HR PRN (Reason: Pain, Moderate (4-6)) Qty: 30 RF: 0 scopolamine base 1 mg over 3 days patch 3 day 1 patch transdermal Q72H Qty: 10 RF: 0 acetaminophen 325 mg Tablet 975 mg PO Q6HR Qty: 30 RF: 0 gabapentin [Neurontin] 300 mg Capsule 300 mg PO BID Qty: 30 RF: 0 Discontinued montelukast [Singulair] 10 MG tablet 10 mg PO QPM Qty: 0 RF: 0 furosemide 40 mg tablet 80 mg PO QAM RF: 0 cetirizine 10 mg tablet 10 mg PO DAILY PRN (Reason: Allergy Symptoms) RF: 0 atorvastatin 10 mg tablet 10 mg PO QPM RF: 0 nortriptyline 10 mg capsule 10 mg PO BEDTIME RF: 0 lisinopril 10 mg tablet 10 mg PO DAILY RF: 0 albuterol sulfate [Ventolin HFA] 90 mcg/actuation HFA aerosol inhaler 2 puff inhalation QID PRN (Reason: Shortness Of Breath) RF: 0 metoprolol tartrate 25 mg tablet 25 mg PO BID RF: 0 furosemide 40 mg tablet 40 mg PO QPM RF: 0 acetaminophen 325 mg Tablet 325 mg PO BEDTIME PRN (Reason: pain) RF: 0 aspirin 325 mg Tablet 325 mg PO DAILY RF: 0 fluticasone propion-salmeterol [Advair Diskus] 500-50 mcg/dose blister with device 1 puff inhalation BID RF: 0 risperidone [Risperdal] 0.5 mg Tablet 0.5 mg PO BEDTIME RF: 0 cholecalciferol (vitamin D3) [Vitamin D3] 2,000 unit Capsule 2,000 unit PO DAILY RF: 0 Follow up/Referrals: Aldo Jeronimo ND [Primary Care Provider] - Provider Discharge Instructions Diet comment: Comfort feeding only Activity: Bed rest only Visit Report/Discharge Packet Instructions: Pelvic Fracture, Wrist Fracture, DI for Pneumonia -- Adult, DI for Stroke-Intracerebral Hemorrhage Discharge Data Primary Care Provider: Aldo Jeronimo Attending Provider: Jose Mcgarry Admit Date/Time: 09/16/18 20:34 Discharges patient from system. Discharge Date/Time: 09/18/18 14:20 Quality VTE Deep Vein Thrombosis/Pulmonary Embolism Present on Admission: No
--- NOTE | 2018-09-18 12:19 | CM.DPC ---
DCP/continued: Reviewed chart. Received notification from hospice that they will meet with DPOA today at approximately 11:30am. Spoke with Dr. Gutierrez in AM rounds and she reports that patient is medically stable to return to [facility] with Hospice. Spoke with ROXANE/Ramone and she confirms consents signed. Ramone aware and agreeable for patient to return to [facility] today. TELEPHONE ENGINEER placed call to Jackie at [facility] and she confirms acceptance. Jackie made aware that hospice not expected to do visit until weekend. Per Rosalind, that is there first opening. Dr. Gutierrez aware and left message with Dr. Ramirez requesting [facility] visit sooner. Jackie reports that she is very comfortable distributing hospice medications to patient in the meantime. Scripts provided to DPOA to fill and she will take to [facility]. Copy of scripts made and placed in red folder. Patient requiring non-urgent BLS transport. Medical necessity form signed by and TELEPHONE ENGINEER. Patient unable to transport safely any other way expect stretcher. Asked ISIDRO/Danita to arrange transport. sound effects supervisor scheduled for approximately 2:00pm. RN updated. P: Return to [facility] today. Hospice consents signed and they are following. KAILA Chow
--- NOTE | 2018-09-18 15:42 | PC.NURSE ---
Transfer/discharge: Pt readied for transfer to facility. Report given to bls crew. Reviewed hospital course, pt is a dnr. Did enc pt to take something for the pain but she didn't want to saying she didn't need anything right now. paperwork taken. Dtr here and already picked up rx to fill them for facility. Tried to call report to Jackie admitting nurse. Message left but there has been no return call. Oncoming RN Glenny has had pt before and if they do call back she feels comfortable giving them report. Pt transfered to [facility] via amb.
--- NOTE | 2018-09-19 11:46 | CM.DPC ---
DCP Cont: Faxed discharge summary to [facility] at fax # [phone]. Fax confirmation scanned in. Danita Oneil, Care Exterminator Helper
== END 2018-09-18 14:20 | disposition hospice, home (50) | DRG 964 ==
LOC: ED 17:02 → AC 20:34
PROVIDERS: Admitting Provider Nurse Practitioner Gerontology; Emergency Provider Nurse Practitioner Family; Family Provider Physician Assistant Medical; PCP Hospitalist; Visit Provider Nurse Practitioner Gerontology
DX: S06.340A Traumatic hemorrhage of right cerebrum without loss of consciousness, initial encounter (principal); S32.592A Other specified fracture of left pubis, initial encounter for closed fracture; S52.502A Unspecified fracture of the lower end of left radius, initial encounter for closed fracture; S52.612A Displaced fracture of left ulna styloid process, initial encounter for closed fracture; F02.81 Dementia in other diseases classified elsewhere, unspecified severity, with behavioral disturbance; F05 Delirium due to known physiological condition; I48.91 Unspecified atrial fibrillation; M85.80 Other specified disorders of bone density and structure, unspecified site; J44.9 Chronic obstructive pulmonary disease, unspecified; I12.9 Hypertensive chronic kidney disease with stage 1 through stage 4 chronic kidney disease, or unspecified chronic kidney disease; N18.3 Chronic kidney disease, stage 3 (moderate); G30.9 Alzheimer's disease, unspecified; W18.30XA Fall on same level, unspecified, initial encounter; Y92.099 Unspecified place in other non-institutional residence as the place of occurrence of the external cause
CPT/HCPCS: 29260; 36591; 70450; 71045; 72125; 73100; 73120; 73502; 73560; 80053; 81001; 85025; 85610; 85730; 86850; 86900; 86901; 87086; 93005; 94762; 97163; 99233; 99284; 99285; J2060; J2270